=== PATIENT | female | born 1950 | race Caucasian/White ===

== ENCOUNTER 2023-01-03 04:08 | Inpatient (IN) | payer BC ==
[2023-01-03] MEDS ORDERED: ALBUTEROL SO4 2.5/IPRATROPIUM 0.5 INH SOL 3 ML VIAL.NEB. NEB ONE ×2 (05:14→05:31)
[2023-01-03] MEDS ORDERED: ACETAMINOPHEN 1000 MG/100 ML BAG IVPB ONE (05:16)
[2023-01-03] MEDS ORDERED: DEXAMETHASONE SOD PHOSPHATE 10 MG/1 ML VIAL IVPUSH ONE (05:33)
[2023-01-03] MEDS ORDERED: DEXAMETHASONE SOD PHOSPHATE 10 MG/1 ML VIAL ONE (05:57)
[2023-01-03] MEDS ORDERED: ACETAMINOPHEN INJECTION 100 ML IVPB ONE (05:57)
[2023-01-03 06:15] LABS: BASO % 0.4 % (0-2.0); EOS % 0.5 % (0-4.5); HEMATOCRIT 30.8 % (32.4-45.2); LYMPH % 22.9 % (8-40); MCH 29.7 pg (25.7-33.7); MCHC 32.4 g/dl (32.0-36.0); MEAN CELL VOLUME 91.6 fl (80-96); MEAN PLT VOLUME 8.1 fl (7.5-11.1); MONO % 10.8 % (3.8-10.2); NEUT % 65.4 % (42.8-82.8); PLATELET COUNT 178 10^3/uL (134-434); RBC 3.37 M/mm3 (3.60-5.2); RDW 15.6 % (11.6-15.6)
[2023-01-03 06:17] LABS: VENOUS BASE EXCESS -1.8 mmol/L (-2-2); VENOUS O2 SATURATION 49.6 % (70-80); VENOUS PCO2 49.9 mmHg (38-52); VENOUS PH 7.312 (7.310-7.410)
[2023-01-03 06:26] LABS: INR 1.1 (0.83-1.09); PROTHROMBIN TIME (PATIENT) 12.8 SEC (9.7-13.0)
[2023-01-03 06:29] LABS: ACTIVATED PTT 20.7 SECONDS (25.2-36.5)
[2023-01-03 06:33] LABS: POTASSIUM 4.3 mmol/L (3.5-5.1)
[2023-01-03 06:35] LABS: CALCIUM 8.2 mg/dL (8.5-10.1)
[2023-01-03 06:36] LABS: ALBUMIN 2.8 g/dl (3.4-5.0); BLOOD UREA NITROGEN 25.5 mg/dL (7-18); MAGNESIUM 1.1 mg/dL (1.8-2.4)
[2023-01-03 06:39] LABS: CREATININE 2.3 mg/dL (0.55-1.3); PHOSPHOROUS 4.7 mg/dL (2.5-4.9)
[2023-01-03 06:40] LABS: BILIRUBIN,TOTAL 0.5 mg/dL (0.2-1); TOT PROT 7.4 g/dl (6.4-8.2)
[2023-01-03] MEDS ORDERED: MAGNESIUM SULF 50% (8.12 MEQ/2 ML-1 GM VIAL) IVPB ONE (06:48)
[2023-01-03] MEDS ORDERED: SODIUM CHLORIDE 500 ML IV STA (06:50)
[2023-01-03] MEDS ORDERED: MAGNESIUM SULFATE IN WATER 2 GM/50 ML IVPB IVPB ONE (06:50)
[2023-01-03] MEDS ORDERED: ALBUTEROL SO4 0.083% IH SOL 2.5 MG/3 ML VIAL.NEB. NEB ONE ×2 (08:31→08:33)
[2023-01-03] MEDS: CALCITRIOL 0.25 MCG CAPSULE (FP) PO SCH (11:13)
[2023-01-03] MEDS: PANTOPRAZOLE 40 MG TABLET PO SCH (11:13)
[2023-01-03] MEDS: ESCITALOPRAM OXALATE 10 MG TABLET PO SCH (11:13)
[2023-01-03] MEDS: INSULIN (NOVOLOG) ASPART 100 UNITS/ML 10ML VIAL SQ SCH ×3 (11:35→21:55)
[2023-01-03 12:17] LABS: HEMATOCRIT 28.7 % (32.4-45.2); HEMOGLOBIN 9.1 GM/dL (10.7-15.3); LYMPH % 6.2 % (8-40); MCH 29.4 pg (25.7-33.7); MCHC 31.8 g/dl (32.0-36.0); MEAN CELL VOLUME 92.2 fl (80-96); MEAN PLT VOLUME 8.4 fl (7.5-11.1); MONO % 2.2 % (3.8-10.2); NEUT % 91.6 % (42.8-82.8); PLATELET COUNT 203 10^3/uL (134-434); RBC 3.11 M/mm3 (3.60-5.2); RDW 15.5 % (11.6-15.6); WHITE BLOOD COUNT 4.9 K/mm3 (4.0-10.0)
[2023-01-03 12:21] LABS: EPI CELLS >36 /uL (0-25.1); HYALINE CASTS 3 /uL (0-3.1); URINE APPEARANCE CLOUDY; URINE BACTERIA 62 /uL (0-1359); URINE BILIRUBIN NEGATIVE (NEGATIVE); URINE COLOR YELLOW; URINE GLUCOSE (UA) NEGATIVE (NEGATIVE); URINE KETONE NEGATIVE (NEGATIVE); URINE LEUK ESTERASE 1+ (NEGATIVE); URINE NITRITE NEGATIVE (NEGATIVE); URINE PROTEIN 1+ (NEGATIVE); URINE RBC 29 /uL (0-23.9); URINE UROBILINOGEN 0.2 mg/dL (0.2-1.0); URINE WBC 207 /uL (0-25.8)
[2023-01-03 12:40] LABS: ANISOCYTOSIS 2+; MACROCYTOSIS 0
[2023-01-03] MEDS ORDERED: ALBUTEROL SO4 0.083% IH SOL 2.5 MG/3 ML VIAL.NEB. NEB PRN (12:48)
[2023-01-03 13:24] VITALS: BMI 34.4
[2023-01-03] MEDS: methylPREDNISolone NA SUCC 40 MG/1 ML VIAL IVPUSH SCH ×2 (13:47→17:36)
[2023-01-03] MEDS: HEPARIN NA (PORCINE) 5,000 UNITS/ML 1ML VIAL SQ SCH ×2 (13:47→21:50)
[2023-01-03] MEDS ORDERED: IRON SUCROSE INJECTION 200 MG in SODIUM CHLORIDE 90 ML IVPB ONE (14:30)
[2023-01-03] MEDS: ASPIRIN 81 MG CHEWABLE TABLETS PO SCH (17:36)
[2023-01-03] MEDS: ALBUTEROL SO4 2.5/IPRATROPIUM 0.5 INH SOL 3 ML VIAL.NEB. NEB SCH (21:35)
[2023-01-03] MEDS: MONTELUKAST NA 10 MG TABLET PO SCH (21:50)
[2023-01-03] MEDS: ATORVASTATIN CA 20 MG TABLET (FP) PO SCH (21:50)
[2023-01-04] MEDS: methylPREDNISolone NA SUCC 40 MG/1 ML VIAL IVPUSH SCH ×3 (02:30→17:35)
[2023-01-04] MEDS: INSULIN (NOVOLOG) ASPART 100 UNITS/ML 10ML VIAL SQ SCH ×4 (06:17→22:03)
[2023-01-04] MEDS: HEPARIN NA (PORCINE) 5,000 UNITS/ML 1ML VIAL SQ SCH ×3 (06:17→22:03)
[2023-01-04] MEDS: LEVOTHYROXINE NA 50 MCG TABLET (FP) PO SCH (06:18)
[2023-01-04] MEDS: ALBUTEROL SO4 2.5/IPRATROPIUM 0.5 INH SOL 3 ML VIAL.NEB. NEB SCH ×4 (08:07→20:36)
[2023-01-04 08:15] LABS: BASO % 0.1 % (0-2.0); HEMATOCRIT 26.4 % (32.4-45.2); HEMOGLOBIN 8.7 GM/dL (10.7-15.3); LYMPH % 8.3 % (8-40); MCH 29.8 pg (25.7-33.7); MCHC 32.8 g/dl (32.0-36.0); MEAN CELL VOLUME 90.9 fl (80-96); MEAN PLT VOLUME 8.2 fl (7.5-11.1); NEUT % 88.6 % (42.8-82.8); PLATELET COUNT 198 10^3/uL (134-434); RDW 15.3 % (11.6-15.6); WHITE BLOOD COUNT 8.1 K/mm3 (4.0-10.0)
[2023-01-04 08:29] LABS: POTASSIUM 4.5 mmol/L (3.5-5.1)
[2023-01-04 08:35] LABS: CALCIUM 8.7 mg/dL (8.5-10.1)
[2023-01-04 08:36] LABS: ALBUMIN 2.5 g/dl (3.4-5.0); BLOOD UREA NITROGEN 31.1 mg/dL (7-18); MAGNESIUM 1.7 mg/dL (1.8-2.4)
[2023-01-04 08:39] LABS: CREATININE 2.3 mg/dL (0.55-1.3); TOT PROT 6.7 g/dl (6.4-8.2)
[2023-01-04 08:40] LABS: BILIRUBIN,TOTAL 0.3 mg/dL (0.2-1)
[2023-01-04] MEDS ORDERED: MAGNESIUM SULF 50% (8.12 MEQ/2 ML-1 GM VIAL) IVPB ONE (08:50)
[2023-01-04] MEDS ORDERED: REGADENOSON 0.4 MG/5 ML PRE-FILLED SYRINGE IVPUSH ONE ×2 (13:15→13:32)
[2023-01-04] MEDS ORDERED: VANCOMYCIN/WATER FOR INJ (PEG) 1,000 MG/200 ML BAG IVPB ONE (14:44)
[2023-01-04] MEDS ORDERED: AZTREONAM 1 GM in DEXTROSE 5%-WATER - 50 ML IVPB SCH (14:45)
[2023-01-04] MEDS: ESCITALOPRAM OXALATE 10 MG TABLET PO SCH (15:50)
[2023-01-04] MEDS: SUCRALFATE 1 GM TABLET (FP) PO SCH ×3 (15:51→22:03)
[2023-01-04] MEDS: PANTOPRAZOLE 40 MG TABLET PO SCH (15:51)
[2023-01-04] MEDS: AZTREONAM 1 GM in DEXTROSE 5%-WATER - 50 ML IVPB SCH ×2 (15:51→22:02)
[2023-01-04] MEDS: CALCITRIOL 0.25 MCG CAPSULE (FP) PO SCH (15:51)
[2023-01-04] MEDS: ASPIRIN 81 MG CHEWABLE TABLETS PO SCH (15:51)
[2023-01-04 19:06] LABS: EPI CELLS 6 /uL (0-25.1); HYALINE CASTS 2 /uL (0-3.1); PH,URINE 5.5 (5.0-8.0); URINE APPEARANCE CLEAR; URINE BACTERIA 251 /uL (0-1359); URINE BILIRUBIN NEGATIVE (NEGATIVE); URINE COLOR YELLOW; URINE GLUCOSE (UA) 1+ (NEGATIVE); URINE KETONE NEGATIVE (NEGATIVE); URINE LEUK ESTERASE 2+ (NEGATIVE); URINE NITRITE NEGATIVE (NEGATIVE); URINE PROTEIN 1+ (NEGATIVE); URINE UROBILINOGEN 0.2 mg/dL (0.2-1.0); URINE WBC 763 /uL (0-25.8)
[2023-01-04 20:44] LABS: URINE RBC 27.6 /uL (0-23.9)
[2023-01-04] MEDS ORDERED: INSULIN (NOVOLOG) ASPART 100 UNITS/ML 10ML VIAL ONE (21:30)
[2023-01-04] MEDS: ATORVASTATIN CA 20 MG TABLET (FP) PO SCH (22:03)
[2023-01-04] MEDS: MONTELUKAST NA 10 MG TABLET PO SCH (22:03)
[2023-01-04] MEDS: ARTIFICIAL TEARS (POLYVINYL ALCOHOL) OPTH DROPS OU PRN (22:04)
[2023-01-05] MEDS: methylPREDNISolone NA SUCC 40 MG/1 ML VIAL IVPUSH SCH ×3 (03:20→17:29)
[2023-01-05] MEDS: INSULIN (NOVOLOG) ASPART 100 UNITS/ML 10ML VIAL SQ SCH ×4 (06:03→21:12)
[2023-01-05] MEDS: LEVOTHYROXINE NA 50 MCG TABLET (FP) PO SCH (06:04)
[2023-01-05] MEDS: HEPARIN NA (PORCINE) 5,000 UNITS/ML 1ML VIAL SQ SCH ×3 (06:04→21:12)
[2023-01-05 07:35] LABS: POTASSIUM 4.2 mmol/L (3.5-5.1)
[2023-01-05 07:38] LABS: CALCIUM 8.8 mg/dL (8.5-10.1)
[2023-01-05 07:39] LABS: ALBUMIN 2.4 g/dl (3.4-5.0); BLOOD UREA NITROGEN 39.9 mg/dL (7-18)
[2023-01-05] MEDS: ALBUTEROL SO4 2.5/IPRATROPIUM 0.5 INH SOL 3 ML VIAL.NEB. NEB SCH ×5 (07:40→20:09)
[2023-01-05 07:42] LABS: CREATININE 2.1 mg/dL (0.55-1.3)
[2023-01-05 07:43] LABS: TOT PROT 6.2 g/dl (6.4-8.2)
[2023-01-05 07:44] LABS: BILIRUBIN,TOTAL 0.2 mg/dL (0.2-1)
[2023-01-05] MEDS ORDERED: REGADENOSON 0.4 MG/5 ML PRE-FILLED SYRINGE IVPUSH ONE (10:15)
[2023-01-05] MEDS: AZTREONAM 1 GM in DEXTROSE 5%-WATER - 50 ML IVPB SCH ×2 (12:58→21:10)
[2023-01-05] MEDS: ESCITALOPRAM OXALATE 10 MG TABLET PO SCH (12:58)
[2023-01-05] MEDS: SUCRALFATE 1 GM TABLET (FP) PO SCH ×4 (12:59→21:12)
[2023-01-05] MEDS: ASPIRIN 81 MG CHEWABLE TABLETS PO SCH (12:59)
[2023-01-05] MEDS: PANTOPRAZOLE 40 MG TABLET PO SCH (12:59)
[2023-01-05] MEDS: CALCITRIOL 0.25 MCG CAPSULE (FP) PO SCH (12:59)
[2023-01-05] MEDS ORDERED: INSULIN (NOVOLOG) ASPART 100 UNITS/ML 10ML VIAL ONE ×2 (16:52→21:14)
[2023-01-05] MEDS: ARTIFICIAL TEARS (POLYVINYL ALCOHOL) OPTH DROPS OU PRN (17:29)
[2023-01-05] MEDS: ATORVASTATIN CA 20 MG TABLET (FP) PO SCH (21:11)
[2023-01-05] MEDS: MONTELUKAST NA 10 MG TABLET PO SCH (21:12)
[2023-01-06] MEDS: BENZOCAINE/MENTH/CETYLPYRD CL 1 EACH LOZENGE MM PRN ×4 (01:58→22:02)
[2023-01-06] MEDS: methylPREDNISolone NA SUCC 40 MG/1 ML VIAL IVPUSH SCH ×3 (03:30→18:12)
[2023-01-06] MEDS: HEPARIN NA (PORCINE) 5,000 UNITS/ML 1ML VIAL SQ SCH ×3 (05:51→22:01)
[2023-01-06] MEDS: LEVOTHYROXINE NA 50 MCG TABLET (FP) PO SCH ×2 (05:51→06:00)
[2023-01-06] MEDS: INSULIN (NOVOLOG) ASPART 100 UNITS/ML 10ML VIAL SQ SCH ×4 (06:00→22:01)
[2023-01-06] MEDS: ALBUTEROL SO4 2.5/IPRATROPIUM 0.5 INH SOL 3 ML VIAL.NEB. NEB SCH ×4 (08:00→19:28)
[2023-01-06 08:42] LABS: HEMATOCRIT 27.2 % (32.4-45.2); HEMOGLOBIN 8.8 GM/dL (10.7-15.3); MCH 28.7 pg (25.7-33.7); MCHC 32.3 g/dl (32.0-36.0); MEAN PLT VOLUME 7.5 fl (7.5-11.1); PLATELET COUNT 255 10^3/uL (134-434); RBC 3.05 M/mm3 (3.60-5.2); RDW 15.6 % (11.6-15.6); WHITE BLOOD COUNT 11.5 K/mm3 (4.0-10.0)
[2023-01-06 09:02] LABS: POTASSIUM 4.2 mmol/L (3.5-5.1)
[2023-01-06 09:07] LABS: BLOOD UREA NITROGEN 44.2 mg/dL (7-18)
[2023-01-06 09:08] LABS: ALBUMIN 2.6 g/dl (3.4-5.0)
[2023-01-06 09:12] LABS: BILIRUBIN,TOTAL 0.5 mg/dL (0.2-1); TOT PROT 6.6 g/dl (6.4-8.2)
[2023-01-06 09:58] LABS: ANISOCYTOSIS 1+; MACROCYTOSIS 0
[2023-01-06] MEDS: ASPIRIN 81 MG CHEWABLE TABLETS PO SCH (10:03)
[2023-01-06] MEDS: ESCITALOPRAM OXALATE 10 MG TABLET PO SCH (10:03)
[2023-01-06] MEDS: AZTREONAM 1 GM in DEXTROSE 5%-WATER - 50 ML IVPB SCH ×2 (10:03→22:00)
[2023-01-06] MEDS: PANTOPRAZOLE 40 MG TABLET PO SCH (10:03)
[2023-01-06] MEDS: SUCRALFATE 1 GM TABLET (FP) PO SCH ×4 (10:03→22:01)
[2023-01-06] MEDS: CALCITRIOL 0.25 MCG CAPSULE (FP) PO SCH (10:03)
[2023-01-06] MEDS ORDERED: INSULIN (NOVOLOG) ASPART 100 UNITS/ML 10ML VIAL ONE (11:55)
[2023-01-06] MEDS ORDERED: VANCOMYCIN/WATER FOR INJ (PEG) 1,000 MG/200 ML BAG IVPB ONE (12:00)
[2023-01-06] MEDS: MONTELUKAST NA 10 MG TABLET PO SCH (22:01)
[2023-01-06] MEDS: ATORVASTATIN CA 20 MG TABLET (FP) PO SCH (22:01)
[2023-01-07] MEDS: methylPREDNISolone NA SUCC 40 MG/1 ML VIAL IVPUSH SCH ×3 (03:24→14:34)
[2023-01-07] MEDS: HEPARIN NA (PORCINE) 5,000 UNITS/ML 1ML VIAL SQ SCH ×3 (06:36→21:44)
[2023-01-07] MEDS: LEVOTHYROXINE NA 50 MCG TABLET (FP) PO SCH (06:37)
[2023-01-07] MEDS: INSULIN (NOVOLOG) ASPART 100 UNITS/ML 10ML VIAL SQ SCH ×4 (06:37→21:52)
[2023-01-07] MEDS: ALBUTEROL SO4 2.5/IPRATROPIUM 0.5 INH SOL 3 ML VIAL.NEB. NEB SCH ×4 (08:30→20:41)
[2023-01-07] MEDS ORDERED: ACETAMINOPHEN 325 MG TABLET (FP) PO PRN (09:08)
[2023-01-07] MEDS: ASPIRIN 81 MG CHEWABLE TABLETS PO SCH (09:19)
[2023-01-07] MEDS: PANTOPRAZOLE 40 MG TABLET PO SCH (09:19)
[2023-01-07] MEDS: ESCITALOPRAM OXALATE 10 MG TABLET PO SCH (09:19)
[2023-01-07] MEDS: AZTREONAM 1 GM in DEXTROSE 5%-WATER - 50 ML IVPB SCH ×2 (09:19→21:42)
[2023-01-07] MEDS: SUCRALFATE 1 GM TABLET (FP) PO SCH ×4 (09:19→21:44)
[2023-01-07] MEDS: CALCITRIOL 0.25 MCG CAPSULE (FP) PO SCH (09:19)
[2023-01-07] MEDS ORDERED: INSULIN (NOVOLOG) ASPART 100 UNITS/ML 10ML VIAL ONE ×2 (10:59→16:51)
[2023-01-07 13:09] LABS: TOTAL PROTEIN, URINE 25.2 mg/dL (Not Estab.)
[2023-01-07] MEDS ORDERED: VANCOMYCIN/WATER FOR INJ (PEG) 1,000 MG/200 ML BAG IVPB SCH (17:00)
[2023-01-07] MEDS: MONTELUKAST NA 10 MG TABLET PO SCH (21:44)
[2023-01-07] MEDS: ATORVASTATIN CA 20 MG TABLET (FP) PO SCH (21:44)
[2023-01-08] MEDS: methylPREDNISolone NA SUCC 40 MG/1 ML VIAL IVPUSH SCH ×2 (02:40→12:43)
[2023-01-08] MEDS: HEPARIN NA (PORCINE) 5,000 UNITS/ML 1ML VIAL SQ SCH ×3 (06:33→21:41)
[2023-01-08] MEDS: LEVOTHYROXINE NA 50 MCG TABLET (FP) PO SCH (06:33)
[2023-01-08] MEDS: INSULIN (NOVOLOG) ASPART 100 UNITS/ML 10ML VIAL SQ SCH ×4 (06:33→22:00)
[2023-01-08] MEDS: ALBUTEROL SO4 2.5/IPRATROPIUM 0.5 INH SOL 3 ML VIAL.NEB. NEB SCH (07:40)
[2023-01-08] MEDS: AZTREONAM 1 GM in DEXTROSE 5%-WATER - 50 ML IVPB SCH ×2 (10:33→21:40)
[2023-01-08] MEDS: PANTOPRAZOLE 40 MG TABLET PO SCH (10:33)
[2023-01-08] MEDS: CALCITRIOL 0.25 MCG CAPSULE (FP) PO SCH (10:33)
[2023-01-08] MEDS: ASPIRIN 81 MG CHEWABLE TABLETS PO SCH (10:33)
[2023-01-08] MEDS: ESCITALOPRAM OXALATE 10 MG TABLET PO SCH (10:33)
[2023-01-08] MEDS: SUCRALFATE 1 GM TABLET (FP) PO SCH ×4 (10:33→21:41)
[2023-01-08] MEDS ORDERED: BENZOCAINE/MENTH/CETYLPYRD CL 1 EACH LOZENGE MM PRN (14:03)
[2023-01-08] MEDS ORDERED: ARTIFICIAL TEARS (POLYVINYL ALCOHOL) OPTH DROPS OU PRN (14:03)
[2023-01-08] MEDS: VANCOMYCIN/WATER FOR INJ (PEG) 1,000 MG/200 ML BAG IVPB SCH (16:51)
[2023-01-08] MEDS ORDERED: AZTREONAM 1 GM VIAL (RESTRICTED TO ID) ONE (21:33)
[2023-01-08] MEDS: MONTELUKAST NA 10 MG TABLET PO SCH (21:41)
[2023-01-08] MEDS: ATORVASTATIN CA 20 MG TABLET (FP) PO SCH (21:41)
[2023-01-08] MEDS: INSULIN (LEVEMIR) 100 UNITS/ML UNITS SQ SCH (21:44)
[2023-01-08] MEDS: ARTIFICIAL TEARS (POLYVINYL ALCOHOL) OPTH DROPS OU PRN (21:48)
[2023-01-08] MEDS ORDERED: INSULIN (NOVOLOG) ASPART 100 UNITS/ML 10ML VIAL ONE (21:56)
[2023-01-08] MEDS ORDERED: INSULIN (LEVEMIR) 100 UNITS/ML UNITS SQ SCH (22:00)
[2023-01-09] MEDS: methylPREDNISolone NA SUCC 40 MG/1 ML VIAL IVPUSH SCH ×2 (01:26→16:00)
[2023-01-09] MEDS ORDERED: INSULIN (NOVOLOG) ASPART 100 UNITS/ML 10ML VIAL ONE ×3 (06:02→21:16)
[2023-01-09] MEDS: HEPARIN NA (PORCINE) 5,000 UNITS/ML 1ML VIAL SQ SCH ×3 (06:04→21:25)
[2023-01-09] MEDS: INSULIN (NOVOLOG) ASPART 100 UNITS/ML 10ML VIAL SQ SCH ×4 (06:04→21:26)
[2023-01-09] MEDS: LEVOTHYROXINE NA 50 MCG TABLET (FP) PO SCH (06:05)
[2023-01-09] MEDS: SUCRALFATE 1 GM TABLET (FP) PO SCH ×4 (06:05→21:27)
[2023-01-09] MEDS ORDERED: ASPIRIN 81 MG CHEWABLE TABLETS PO SCH (10:00)
[2023-01-09 10:16] LABS: HEMATOCRIT 25.6 % (32.4-45.2); HEMOGLOBIN 8.3 GM/dL (10.7-15.3); MCH 28.8 pg (25.7-33.7); MCHC 32.4 g/dl (32.0-36.0); MEAN CELL VOLUME 88.9 fl (80-96); MEAN PLT VOLUME 7.3 fl (7.5-11.1); PLATELET COUNT 304 10^3/uL (134-434); RBC 2.88 M/mm3 (3.60-5.2); RDW 15.6 % (11.6-15.6)
[2023-01-09 10:26] LABS: ALBUMIN 2.5 g/dl (3.4-5.0); BILIRUBIN,TOTAL 0.4 mg/dL (0.2-1); BLOOD UREA NITROGEN 55.9 mg/dL (7-18); CALCIUM 8.4 mg/dL (8.5-10.1); CREATININE 1.7 mg/dL (0.55-1.3); POTASSIUM 4.4 mmol/L (3.5-5.1); TOT PROT 5.9 g/dl (6.4-8.2)
[2023-01-09] MEDS: AZTREONAM 1 GM in DEXTROSE 5%-WATER - 50 ML IVPB SCH ×2 (10:35→21:24)
[2023-01-09] MEDS: CALCITRIOL 0.25 MCG CAPSULE (FP) PO SCH (10:36)
[2023-01-09] MEDS: ESCITALOPRAM OXALATE 10 MG TABLET PO SCH (10:36)
[2023-01-09] MEDS: PANTOPRAZOLE 40 MG TABLET PO SCH (10:36)
[2023-01-09 11:11] LABS: ANISOCYTOSIS 0; HELMET CELLS 0; HOWELL-JOLLY BODIES 0; MACROCYTOSIS 0; OVALOCYTE 0; ROULEAU 0; SICKELED CELLS 0; TARGET CELLS 0; TEAR DROP CELLS 0; TOXIC GRANULATION 0
[2023-01-09] MEDS: VANCOMYCIN/WATER FOR INJ (PEG) 1,000 MG/200 ML BAG IVPB SCH (16:53)
[2023-01-09] MEDS: ATORVASTATIN CA 20 MG TABLET (FP) PO SCH (21:24)
[2023-01-09] MEDS: MONTELUKAST NA 10 MG TABLET PO SCH (21:25)
[2023-01-09] MEDS: INSULIN (LEVEMIR) 100 UNITS/ML UNITS SQ SCH (21:25)
[2023-01-10] MEDS: methylPREDNISolone NA SUCC 40 MG/1 ML VIAL IVPUSH SCH ×2 (01:06→15:32)
[2023-01-10] MEDS: ACETAMINOPHEN 325 MG TABLET (FP) PO PRN (03:54)
[2023-01-10] MEDS: HEPARIN NA (PORCINE) 5,000 UNITS/ML 1ML VIAL SQ SCH ×3 (06:04→21:45)
[2023-01-10] MEDS: SUCRALFATE 1 GM TABLET (FP) PO SCH ×4 (06:05→21:46)
[2023-01-10] MEDS: LEVOTHYROXINE NA 50 MCG TABLET (FP) PO SCH (06:05)
[2023-01-10] MEDS: INSULIN (NOVOLOG) ASPART 100 UNITS/ML 10ML VIAL SQ SCH ×4 (06:14→21:47)
[2023-01-10 09:29] LABS: HEMATOCRIT 28.3 % (32.4-45.2); HEMOGLOBIN 8.9 GM/dL (10.7-15.3); MCH 27.9 pg (25.7-33.7); MCHC 31.4 g/dl (32.0-36.0); MEAN CELL VOLUME 88.8 fl (80-96); MEAN PLT VOLUME 7.4 fl (7.5-11.1); PLATELET COUNT 322 10^3/uL (134-434); RBC 3.19 M/mm3 (3.60-5.2); RDW 15.7 % (11.6-15.6); WHITE BLOOD COUNT 17.6 K/mm3 (4.0-10.0)
[2023-01-10 09:53] LABS: CHLORIDE 107 mmol/L (98-107); POTASSIUM 4.3 mmol/L (3.5-5.1); SODIUM 141 mmol/L (136-145)
[2023-01-10 10:00] LABS: CALCIUM 8.5 mg/dL (8.5-10.1)
[2023-01-10 10:01] LABS: ALBUMIN 2.4 g/dl (3.4-5.0); AMYLASE 113 U/L (25-115); ANION GAP 10 MMOL/L (8-16); BLOOD UREA NITROGEN 53.4 mg/dL (7-18); CO2 25 mmol/L (21-32); GLUCOSE,RANDOM 176 mg/dL (74-106); LIPASE 472 U/L (73-393)
[2023-01-10 10:03] LABS: CREATININE 1.5 mg/dL (0.55-1.3); SGOT/AST 21 U/L (15-37); SGPT/ALT 37 U/L (13-61)
[2023-01-10 10:05] LABS: BILIRUBIN,TOTAL 0.9 mg/dL (0.2-1); TOT PROT 5.6 g/dl (6.4-8.2)
[2023-01-10 10:06] LABS: ALK PHOS 39 U/L (45-117)
[2023-01-10] MEDS: PANTOPRAZOLE 40 MG TABLET PO SCH (10:06)
[2023-01-10] MEDS: ESCITALOPRAM OXALATE 10 MG TABLET PO SCH (10:06)
[2023-01-10] MEDS: CALCITRIOL 0.25 MCG CAPSULE (FP) PO SCH (10:06)
[2023-01-10 11:07] LABS: ANISOCYTOSIS 0; HELMET CELLS 0; HOWELL-JOLLY BODIES 0; MACROCYTOSIS 0; OVALOCYTE 0; ROULEAU 0; SICKELED CELLS 0; TARGET CELLS 0; TEAR DROP CELLS 0; TOXIC GRANULATION 0
[2023-01-10] MEDS: AZTREONAM 1 GM in DEXTROSE 5%-WATER - 50 ML IVPB SCH ×2 (12:07→21:44)
[2023-01-10] MEDS ORDERED: INSULIN (NOVOLOG) ASPART 100 UNITS/ML 10ML VIAL ONE (12:16)
[2023-01-10] MEDS: VANCOMYCIN/WATER FOR INJ (PEG) 1,000 MG/200 ML BAG IVPB SCH (17:17)
[2023-01-10] MEDS: MONTELUKAST NA 10 MG TABLET PO SCH (21:44)
[2023-01-10] MEDS: ATORVASTATIN CA 20 MG TABLET (FP) PO SCH (21:45)
[2023-01-10] MEDS: INSULIN (LEVEMIR) 100 UNITS/ML UNITS SQ SCH (21:46)
[2023-01-11] MEDS: methylPREDNISolone NA SUCC 40 MG/1 ML VIAL IVPUSH SCH ×2 (01:32→13:59)
[2023-01-11] MEDS: LEVOTHYROXINE NA 50 MCG TABLET (FP) PO SCH (06:05)
[2023-01-11] MEDS: SUCRALFATE 1 GM TABLET (FP) PO SCH ×4 (06:05→21:47)
[2023-01-11] MEDS: HEPARIN NA (PORCINE) 5,000 UNITS/ML 1ML VIAL SQ SCH ×3 (06:05→21:47)
[2023-01-11] MEDS: INSULIN (NOVOLOG) ASPART 100 UNITS/ML 10ML VIAL SQ SCH ×4 (06:05→21:48)
[2023-01-11 09:12] LABS: HEMATOCRIT 28.1 % (32.4-45.2); HEMOGLOBIN 8.9 GM/dL (10.7-15.3); MCH 28.9 pg (25.7-33.7); MCHC 31.5 g/dl (32.0-36.0); MEAN CELL VOLUME 91.7 fl (80-96); MEAN PLT VOLUME 7.7 fl (7.5-11.1); PLATELET COUNT 325 10^3/uL (134-434); RBC 3.07 M/mm3 (3.60-5.2); RDW 16.1 % (11.6-15.6); WHITE BLOOD COUNT 15.7 K/mm3 (4.0-10.0)
[2023-01-11 09:43] LABS: POTASSIUM 4.6 mmol/L (3.5-5.1)
[2023-01-11 09:45] LABS: CALCIUM 8.2 mg/dL (8.5-10.1)
[2023-01-11 09:46] LABS: ALBUMIN 2.2 g/dl (3.4-5.0); BLOOD UREA NITROGEN 52.2 mg/dL (7-18)
[2023-01-11 09:49] LABS: CREATININE 1.4 mg/dL (0.55-1.3)
[2023-01-11 09:50] LABS: BILIRUBIN,TOTAL 0.3 mg/dL (0.2-1); TOT PROT 5.4 g/dl (6.4-8.2)
[2023-01-11 09:54] LABS: ANISOCYTOSIS 1+; MACROCYTOSIS 0
[2023-01-11] MEDS: PANTOPRAZOLE 40 MG TABLET PO SCH (10:43)
[2023-01-11] MEDS: AZTREONAM 1 GM in DEXTROSE 5%-WATER - 50 ML IVPB SCH ×2 (10:43→21:47)
[2023-01-11] MEDS: ESCITALOPRAM OXALATE 10 MG TABLET PO SCH (10:43)
[2023-01-11] MEDS: CALCITRIOL 0.25 MCG CAPSULE (FP) PO SCH (10:44)
[2023-01-11] MEDS: VANCOMYCIN/WATER FOR INJ (PEG) 1,000 MG/200 ML BAG IVPB SCH (17:37)
[2023-01-11] MEDS: ATORVASTATIN CA 20 MG TABLET (FP) PO SCH (21:46)
[2023-01-11] MEDS: MONTELUKAST NA 10 MG TABLET PO SCH (21:47)
[2023-01-11] MEDS: INSULIN (LEVEMIR) 100 UNITS/ML UNITS SQ SCH (21:47)
[2023-01-12] MEDS: methylPREDNISolone NA SUCC 40 MG/1 ML VIAL IVPUSH SCH ×2 (01:01→13:17)
[2023-01-12] MEDS: HEPARIN NA (PORCINE) 5,000 UNITS/ML 1ML VIAL SQ SCH ×3 (06:12→23:33)
[2023-01-12] MEDS: LEVOTHYROXINE NA 50 MCG TABLET (FP) PO SCH (06:12)
[2023-01-12] MEDS: INSULIN (NOVOLOG) ASPART 100 UNITS/ML 10ML VIAL SQ SCH ×4 (06:13→23:36)
[2023-01-12] MEDS: SUCRALFATE 1 GM TABLET (FP) PO SCH ×4 (06:37→23:33)
[2023-01-12] MEDS: PANTOPRAZOLE 40 MG TABLET PO SCH (09:18)
[2023-01-12] MEDS: AZTREONAM 1 GM in DEXTROSE 5%-WATER - 50 ML IVPB SCH (09:18)
[2023-01-12] MEDS: ESCITALOPRAM OXALATE 10 MG TABLET PO SCH (09:18)
[2023-01-12] MEDS: CALCITRIOL 0.25 MCG CAPSULE (FP) PO SCH (09:18)
[2023-01-12] MEDS ORDERED: INSULIN (NOVOLOG) ASPART 100 UNITS/ML 10ML VIAL ONE (17:09)
[2023-01-12] MEDS: ATORVASTATIN CA 20 MG TABLET (FP) PO SCH (23:33)
[2023-01-12] MEDS: MONTELUKAST NA 10 MG TABLET PO SCH (23:34)
[2023-01-12] MEDS: INSULIN (LEVEMIR) 100 UNITS/ML UNITS SQ SCH (23:34)
[2023-01-13] MEDS: INSULIN (NOVOLOG) ASPART 100 UNITS/ML 10ML VIAL SQ SCH ×4 (07:25→21:29)
[2023-01-13] MEDS: HEPARIN NA (PORCINE) 5,000 UNITS/ML 1ML VIAL SQ SCH ×3 (07:26→21:22)
[2023-01-13] MEDS: LEVOTHYROXINE NA 50 MCG TABLET (FP) PO SCH (07:26)
[2023-01-13] MEDS: SUCRALFATE 1 GM TABLET (FP) PO SCH ×4 (07:28→21:22)
[2023-01-13] MEDS: predniSONE 10 MG TABLET (UD) PO SCH (10:09)
[2023-01-13] MEDS: ESCITALOPRAM OXALATE 10 MG TABLET PO SCH (10:09)
[2023-01-13] MEDS: PANTOPRAZOLE 40 MG TABLET PO SCH (10:09)
[2023-01-13] MEDS: CALCITRIOL 0.25 MCG CAPSULE (FP) PO SCH (10:10)
[2023-01-13] MEDS ORDERED: INSULIN (NOVOLOG) ASPART 100 UNITS/ML 10ML VIAL ONE ×3 (11:37→21:08)
[2023-01-13 14:14] VITALS: RESP 18
[2023-01-13] MEDS: MONTELUKAST NA 10 MG TABLET PO SCH (21:22)
[2023-01-13] MEDS: ATORVASTATIN CA 20 MG TABLET (FP) PO SCH (21:22)
[2023-01-13] MEDS: INSULIN (LEVEMIR) 100 UNITS/ML UNITS SQ SCH (21:29)
[2023-01-14] MEDS: ACETAMINOPHEN 325 MG TABLET (FP) PO PRN (02:09)
[2023-01-14] MEDS ORDERED: INSULIN (LEVEMIR) 100 UNITS/ML UNITS SQ ONE (05:49)
[2023-01-14] MEDS: SUCRALFATE 1 GM TABLET (FP) PO SCH ×4 (06:12→21:22)
[2023-01-14] MEDS: HEPARIN NA (PORCINE) 5,000 UNITS/ML 1ML VIAL SQ SCH ×3 (06:12→21:22)
[2023-01-14] MEDS: LEVOTHYROXINE NA 50 MCG TABLET (FP) PO SCH (06:12)
[2023-01-14] MEDS: INSULIN (NOVOLOG) ASPART 100 UNITS/ML 10ML VIAL SQ SCH ×4 (06:16→21:25)
[2023-01-14] MEDS: ESCITALOPRAM OXALATE 10 MG TABLET PO SCH (09:26)
[2023-01-14] MEDS: PANTOPRAZOLE 40 MG TABLET PO SCH (09:26)
[2023-01-14] MEDS: predniSONE 10 MG TABLET (UD) PO SCH (09:26)
[2023-01-14] MEDS: CALCITRIOL 0.25 MCG CAPSULE (FP) PO SCH (09:27)
[2023-01-14] MEDS ORDERED: INSULIN (NOVOLOG) ASPART 100 UNITS/ML 10ML VIAL ONE (21:03)
[2023-01-14] MEDS: ATORVASTATIN CA 20 MG TABLET (FP) PO SCH (21:21)
[2023-01-14] MEDS: MONTELUKAST NA 10 MG TABLET PO SCH (21:22)
[2023-01-14] MEDS: INSULIN (LEVEMIR) 100 UNITS/ML UNITS SQ SCH (21:25)
[2023-01-15] MEDS: SUCRALFATE 1 GM TABLET (FP) PO SCH ×2 (06:09→11:09)
[2023-01-15] MEDS: LEVOTHYROXINE NA 50 MCG TABLET (FP) PO SCH (06:09)
[2023-01-15] MEDS: HEPARIN NA (PORCINE) 5,000 UNITS/ML 1ML VIAL SQ SCH ×2 (06:09→13:18)
[2023-01-15] MEDS: INSULIN (NOVOLOG) ASPART 100 UNITS/ML 10ML VIAL SQ SCH ×2 (06:11→11:06)
[2023-01-15] MEDS ORDERED: INSULIN (LEVEMIR) 100 UNITS/ML UNITS SQ ONE (06:28)
[2023-01-15] MEDS: PANTOPRAZOLE 40 MG TABLET PO SCH (09:34)
[2023-01-15] MEDS: CALCITRIOL 0.25 MCG CAPSULE (FP) PO SCH (09:34)
[2023-01-15] MEDS: ESCITALOPRAM OXALATE 10 MG TABLET PO SCH (09:34)
[2023-01-15] MEDS ORDERED: PREDNISONE PO SCH (10:00)
[2023-01-15] MEDS ORDERED: predniSONE 10 MG TABLET (UD) PO SCH (10:37)
[2023-01-15 12:13] LABS: POTASSIUM 4.3 mmol/L (3.5-5.1)
[2023-01-15 12:14] LABS: ALBUMIN 2.3 g/dl (3.4-5.0); BLOOD UREA NITROGEN 42.5 mg/dL (7-18); CALCIUM 8.8 mg/dL (8.5-10.1)
[2023-01-15 12:18] LABS: CREATININE 1.4 mg/dL (0.55-1.3)
[2023-01-15 12:19] LABS: BILIRUBIN,TOTAL 0.3 mg/dL (0.2-1); TOT PROT 5.2 g/dl (6.4-8.2)
[2023-01-15 14:10] VITALS: BP 129/71; PULSE 84; TEMP 98.2
== END 2023-01-15 16:23 | disposition home or self-care (01) | DRG 190 ==
LOC: JER 04:08 → JERBED 06:10 → J4W 09:43 → J6S 01-08 14:01
PROVIDERS: ADMIT Family Medicine; ATTEND Family Medicine
DX: J44.1 Chronic obstructive pulmonary disease with (acute) exacerbation (principal); J18.9 Pneumonia, unspecified organism; K86.2 Cyst of pancreas; N39.0 Urinary tract infection, site not specified; J44.0 Chronic obstructive pulmonary disease with (acute) lower respiratory infection; E78.5 Hyperlipidemia, unspecified; K21.9 Gastro-esophageal reflux disease without esophagitis; I12.9 Hypertensive chronic kidney disease with stage 1 through stage 4 chronic kidney disease, or unspecified chronic kidney disease; E11.22 Type 2 diabetes mellitus with diabetic chronic kidney disease; D49.0 Neoplasm of unspecified behavior of digestive system; N18.9 Chronic kidney disease, unspecified; D64.9 Anemia, unspecified; B95.2 Enterococcus as the cause of diseases classified elsewhere; Z85.038 Personal history of other malignant neoplasm of large intestine; Z88.0 Allergy status to penicillin
CPT/HCPCS: 0241U-QW; 36415; 71045-TC-FY; 71250-TC; 74181-TC; 76700-TC; 76856-TC; 78452-TC; 80053; 80061; 81003; 82043; 82150; 82272; 82378; 82570; 82728; 82803; 82962; 83036; 83540; 83550; 83605; 83690; 83735; 83880; 84100; 84132; 84156; 84157; 84443; 84484; 85025; 85610; 85730; 86140; 86301; 86304; 86850; 86900; 86901; 87040; 87070; 87086; 87186; 87205; 87635; 87899; 93005; 93010; 93017; 93306-TC; 94640; 94761; 97116-GP; 97162-GP; 99285-25; A9502; G0480; J1100; J1644; J1756; J2785

== ENCOUNTER 2023-02-03 13:05 | Inpatient (IN) | payer BC ==
[2023-02-03] MEDS ORDERED: LACTATED RINGERS SOLUTION 1000 ML INFUS.BAG IV ONE ×2 (13:17→18:04)
[2023-02-03] MEDS ORDERED: ONDANSETRON 4 MG/2 ML VIAL IVPUSH ONE (13:24)
[2023-02-03] MEDS ORDERED: ACETAMINOPHEN 1000 MG/100 ML BAG IVPB ONE ×2 (13:24→22:06)
[2023-02-03] MEDS ORDERED: ONDANSETRON 4 MG/2 ML VIAL ONE (13:48)
[2023-02-03] MEDS ORDERED: ACETAMINOPHEN INJECTION 100 ML IVPB ONE (13:48)
[2023-02-03 13:54] LABS: VENOUS BASE EXCESS -11.1 mmol/L (-2-2); VENOUS O2 SATURATION 84.2 % (70-80); VENOUS PCO2 33.7 mmHg (38-52); VENOUS PH 7.262 (7.310-7.410)
[2023-02-03 13:57] LABS: HEMATOCRIT 31.6 % (32.4-45.2); HEMOGLOBIN 10.1 GM/dL (10.7-15.3); MCH 29.6 pg (25.7-33.7); MCHC 32.1 g/dl (32.0-36.0); MEAN CELL VOLUME 92.3 fl (80-96); MEAN PLT VOLUME 7.7 fl (7.5-11.1); PLATELET COUNT 234 10^3/uL (134-434); RBC 3.42 M/mm3 (3.60-5.2); WHITE BLOOD COUNT 16.1 K/mm3 (4.0-10.0)
[2023-02-03 14:21] LABS: CHLORIDE 103 mmol/L (98-107); SODIUM 133 mmol/L (136-145)
[2023-02-03 14:25] LABS: ALBUMIN 2.7 g/dl (3.4-5.0); CO2 18 mmol/L (21-32); GLUCOSE,RANDOM 311 mg/dL (74-106); MAGNESIUM 2.1 mg/dL (1.8-2.4)
[2023-02-03 14:27] LABS: CREATININE 2.7 mg/dL (0.55-1.3); PHOSPHOROUS 6.3 mg/dL (2.5-4.9); SGOT/AST 120 U/L (15-37)
[2023-02-03 14:29] LABS: BILIRUBIN,TOTAL 0.6 mg/dL (0.2-1); TOT PROT 7.6 g/dl (6.4-8.2)
[2023-02-03 14:31] LABS: ALK PHOS 64 U/L (45-117)
[2023-02-03 14:32] LABS: ANISOCYTOSIS 0; MACROCYTOSIS 0
[2023-02-03 14:52] LABS: ANION GAP 12 MMOL/L (8-16); LACTIC ACID 6.1 mmol/L (0.4-2.0); POTASSIUM 8.2 mmol/L (3.5-5.1); SGPT/ALT 31 U/L (13-61)
[2023-02-03] MEDS ORDERED: VANCOMYCIN 1 GM in D5W (PRE-DOCKED) 1,000 MG/250 ML (RESTRICTED TO ID ONLY IVPB ONE (15:19)
[2023-02-03] MEDS ORDERED: CEFEPIME HCL/D5W 1 GM/50 ML BAG IVPB ONE (15:19)
[2023-02-03] MEDS ORDERED: FAMOTIDINE 20 MG TABLET PO ONE (15:26)
[2023-02-03] MEDS ORDERED: EPINEPHrine 1:1,000 0.3 MG/0.3 ML SYR IM ONE (15:28)
[2023-02-03] MEDS ORDERED: FAMOTIDINE 20 MG TABLET ONE (15:40)
[2023-02-03] MEDS ORDERED: EPINEPHrine/PF 1 MG/1 ML (1:1,000) AMPULE ONE ×2 (15:40→15:46)
[2023-02-03 15:42] LABS: INR 1.2 (0.83-1.09); PROTHROMBIN TIME (PATIENT) 13.9 SEC (9.7-13.0)
[2023-02-03] MEDS ORDERED: methylPREDNISolone NA SUCC 125 MG/2 ML VIAL IVPUSH ONE (15:45)
[2023-02-03] MEDS ORDERED: methylPREDNISolone NA SUCC 125 MG/2 ML VIAL ONE (15:46)
[2023-02-03 15:55] LABS: POTASSIUM 4.5 mmol/L (3.5-5.1)
[2023-02-03 15:56] LABS: CALCIUM 8.8 mg/dL (8.5-10.1)
[2023-02-03 15:57] LABS: ALBUMIN 2.8 g/dl (3.4-5.0); BLOOD UREA NITROGEN 29.5 mg/dL (7-18)
[2023-02-03 16:00] LABS: CREATININE 2.6 mg/dL (0.55-1.3)
[2023-02-03 16:01] LABS: BILIRUBIN,TOTAL 0.7 mg/dL (0.2-1); TOT PROT 6.5 g/dl (6.4-8.2)
[2023-02-03] MEDS ORDERED: CEFEPIME 1 GM/100 ML BAG IVPB ONE (16:57)
[2023-02-03] MEDS ORDERED: VANCOMYCIN/WATER FOR INJ (PEG) 1,000 MG/200 ML BAG IVPB ONE (17:57)
[2023-02-03] MEDS ORDERED: SODIUM CHLORIDE CVP ONE (18:43)
[2023-02-03] MEDS ORDERED: ALTEPLASE CVP ONE (18:43)
[2023-02-03] MEDS ORDERED: ALTEPLASE 100 MG/100 ML VIAL IVPB ONE (19:15)
[2023-02-03] MEDS ORDERED: ALTEPLASE 100MG 100 ML ONE (19:37)
[2023-02-03 19:44] LABS: URINE APPEARANCE TURBID; URINE COLOR YELLOW
[2023-02-03 19:45] LABS: URINE BILIRUBIN MODERATE (NEGATIVE); URINE GLUCOSE (UA) NEGATIVE (NEGATIVE)
[2023-02-03 19:46] LABS: URINE KETONE NEGATIVE (NEGATIVE); URINE NITRITE POSITIVE (NEGATIVE); URINE PROTEIN 100 (NEGATIVE); URINE UROBILINOGEN 0.2 mg/dL (0.2-1.0)
[2023-02-03 19:47] LABS: EPI CELLS 60 /uL (0-25.1); HYALINE CASTS 7 /uL (0-3.1); URINE BACTERIA 7396 /uL (0-1359); URINE LEUK ESTERASE 2+ (NEGATIVE); URINE RBC 120 /uL (0-23.9); URINE WBC 8836 /uL (0-25.8)
[2023-02-03] MEDS: CHLORHEXIDINE GLUCONATE 4% CLEANSER FOR DECOLONIZATION TP SCH (22:16)
[2023-02-03] MEDS: LACTATED RINGERS SOLUTION 1,000 ML/1,000 ML INFUS.BAG IV SCH (22:17)
[2023-02-03] MEDS: MUPIROCIN 2% TOPICAL OINTMENT FOR DECOLONIZATION NS SCH (22:17)
[2023-02-03] MEDS ORDERED: HEPARIN NA (PORCINE) 5,000 UNITS/ML 1ML VIAL IVPUSH PRN ×2 (22:24)
[2023-02-03] MEDS ORDERED: HEPARIN INFUSION - 25,000 UNITS/500 ML INFUS.BAG IVPB SCH (22:30)
[2023-02-03] MEDS ORDERED: ALBUTEROL SO4 0.083% IH SOL 2.5 MG/3 ML VIAL.NEB. NEB PRN (22:53)
[2023-02-03 22:58] LABS: POTASSIUM 4.6 mmol/L (3.5-5.1)
[2023-02-03 22:59] LABS: CALCIUM 8.4 mg/dL (8.5-10.1)
[2023-02-03 23:04] LABS: CREATININE 2.2 mg/dL (0.55-1.3)
[2023-02-04 00:57] LABS: HEMATOCRIT 28.1 % (32.4-45.2); HEMOGLOBIN 9.1 GM/dL (10.7-15.3); MCH 29.6 pg (25.7-33.7); MCHC 32.4 g/dl (32.0-36.0); MEAN CELL VOLUME 91.2 fl (80-96); MEAN PLT VOLUME 7.2 fl (7.5-11.1); PLATELET COUNT 156 10^3/uL (134-434); RBC 3.08 M/mm3 (3.60-5.2); RDW 16.5 % (11.6-15.6); WHITE BLOOD COUNT 6.4 K/mm3 (4.0-10.0)
[2023-02-04] MEDS ORDERED: ACETAMINOPHEN 1000 MG/100 ML BAG IVPB PRN ×2 (05:30→08:37)
[2023-02-04] MEDS: LEVOTHYROXINE NA 50 MCG TABLET (FP) PO SCH (06:02)
[2023-02-04 07:25] LABS: HEMATOCRIT 24.7 % (32.4-45.2); HEMOGLOBIN 8.1 GM/dL (10.7-15.3); MCHC 32.7 g/dl (32.0-36.0); MEAN CELL VOLUME 91.5 fl (80-96); MEAN PLT VOLUME 7.4 fl (7.5-11.1); PLATELET COUNT 130 10^3/uL (134-434); RDW 16.3 % (11.6-15.6); WHITE BLOOD COUNT 11.3 K/mm3 (4.0-10.0)
[2023-02-04 07:32] LABS: INR 1.4 (0.83-1.09); PROTHROMBIN TIME (PATIENT) 16.2 SEC (9.7-13.0)
[2023-02-04 07:35] LABS: ACTIVATED PTT 36.1 SECONDS (25.2-36.5)
[2023-02-04 07:55] LABS: POTASSIUM 3.8 mmol/L (3.5-5.1)
[2023-02-04 08:13] LABS: CALCIUM 8.1 mg/dL (8.5-10.1)
[2023-02-04 08:14] LABS: ALBUMIN 2.3 g/dl (3.4-5.0); BLOOD UREA NITROGEN 32.7 mg/dL (7-18); MAGNESIUM 1.4 mg/dL (1.8-2.4)
[2023-02-04 08:17] LABS: CREATININE 2.4 mg/dL (0.55-1.3); PHOSPHOROUS 4.4 mg/dL (2.5-4.9)
[2023-02-04 08:19] LABS: TOT PROT 5.4 g/dl (6.4-8.2)
[2023-02-04] MEDS ORDERED: MAGNESIUM 2GM/50ML STERILE WATER IVPB IVPB ONE (09:00)
[2023-02-04 09:15] LABS: ANISOCYTOSIS 0; HELMET CELLS 0; HOWELL-JOLLY BODIES 0; MACROCYTOSIS 0; OVALOCYTE 0; ROULEAU 0; SICKELED CELLS 0; TARGET CELLS 0; TEAR DROP CELLS 0; TOXIC GRANULATION 0
[2023-02-04] MEDS ORDERED: MAGNESIUM 1GM/D5W 100ML - 100 ML IVPB IVPB ONE (09:15)
[2023-02-04] MEDS: SUCRALFATE 1 GM/10 ML UNIT DOSE CUPS PO SCH ×4 (09:34→21:10)
[2023-02-04] MEDS: MUPIROCIN 2% TOPICAL OINTMENT FOR DECOLONIZATION NS SCH ×2 (09:34→21:10)
[2023-02-04] MEDS ORDERED: CEFTRIAXONE 1 GM in DEXTROSE 5%-WATER - 50 ML IVPB SCH (10:00)
[2023-02-04] MEDS ORDERED: LIDOCAINE HCL 2% JELLY (30 ML/TUBE) TP ONE (10:54)
[2023-02-04] MEDS ORDERED: LIDOCAINE HCL 2% JELLY 10 ML CARTRIDGE TP ONE (11:15)
[2023-02-04] MEDS ORDERED: NOREPINEPHRINE BITARTRATE/D5W 8 MG/250 ML BAG IVPB SCH (12:00)
[2023-02-04] MEDS ORDERED: VANCOMYCIN/WATER FOR INJ (PEG) 1,000 MG/200 ML BAG IVPB ONE (13:00)
[2023-02-04] MEDS ORDERED: APIXABAN 5 MG TABLET PO SCH (15:47)
[2023-02-04] MEDS ORDERED: HEPARIN NA (PORCINE) 5,000 UNITS/ML 1ML VIAL IVPUSH PRN ×2 (16:53)
[2023-02-04] MEDS ORDERED: HEPARIN - 25,000 UNIT in SODIUM CHLORIDE 495 ML IV SCH (17:00)
[2023-02-04] MEDS: APIXABAN 5 MG TABLET PO SCH ×2 (18:36→21:10)
[2023-02-04] MEDS: AZTREONAM 1 GM in DEXTROSE 5%-WATER - 50 ML IVPB SCH (21:09)
[2023-02-04] MEDS: ATORVASTATIN CA 20 MG TABLET (FP) PO SCH (21:10)
[2023-02-04] MEDS: MONTELUKAST NA 10 MG TABLET PO SCH (21:10)
[2023-02-04] MEDS: CHLORHEXIDINE GLUCONATE 4% CLEANSER FOR DECOLONIZATION TP SCH (21:10)
[2023-02-04] MEDS: LACTATED RINGERS SOLUTION 1,000 ML/1,000 ML INFUS.BAG IV SCH (21:18)
[2023-02-05] MEDS: LEVOTHYROXINE NA 50 MCG TABLET (FP) PO SCH (06:14)
[2023-02-05] MEDS: SUCRALFATE 1 GM/10 ML UNIT DOSE CUPS PO SCH ×4 (06:14→21:42)
[2023-02-05 07:13] LABS: BASO % 0.2 % (0-2.0); EOS % 0.4 % (0-4.5); HEMATOCRIT 23.3 % (32.4-45.2); HEMOGLOBIN 7.4 GM/dL (10.7-15.3); LYMPH % 7.1 % (8-40); MCH 29.5 pg (25.7-33.7); MCHC 31.9 g/dl (32.0-36.0); MEAN CELL VOLUME 92.5 fl (80-96); MEAN PLT VOLUME 8.2 fl (7.5-11.1); NEUT % 84.3 % (42.8-82.8); PLATELET COUNT 129 10^3/uL (134-434); RBC 2.52 M/mm3 (3.60-5.2); RDW 16.3 % (11.6-15.6)
[2023-02-05 07:19] LABS: POTASSIUM 3.9 mmol/L (3.5-5.1)
[2023-02-05 07:21] LABS: CALCIUM 7.9 mg/dL (8.5-10.1)
[2023-02-05 07:22] LABS: BLOOD UREA NITROGEN 39.4 mg/dL (7-18); MAGNESIUM 2.2 mg/dL (1.8-2.4)
[2023-02-05 07:25] LABS: CREATININE 2.2 mg/dL (0.55-1.3); PHOSPHOROUS 4.7 mg/dL (2.5-4.9)
[2023-02-05 07:27] LABS: BILIRUBIN,TOTAL 0.3 mg/dL (0.2-1); TOT PROT 5.3 g/dl (6.4-8.2)
[2023-02-05] MEDS: MUPIROCIN 2% TOPICAL OINTMENT FOR DECOLONIZATION NS SCH ×2 (09:06→21:56)
[2023-02-05] MEDS: AZTREONAM 1 GM in DEXTROSE 5%-WATER - 50 ML IVPB SCH ×2 (09:06→21:40)
[2023-02-05] MEDS: APIXABAN 5 MG TABLET PO SCH ×2 (09:07→21:42)
[2023-02-05] MEDS ORDERED: ACETAMINOPHEN 1000 MG/100 ML BAG IVPB ONE (11:06)
[2023-02-05] MEDS ORDERED: POLYETHYLENE GLYCOL 3350 255 GM BTL PO ONE (13:00)
[2023-02-05 13:12] LABS: BASO % 0.1 % (0-2.0); EOS % 0.6 % (0-4.5); HEMOGLOBIN 7.5 GM/dL (10.7-15.3); LYMPH % 6.6 % (8-40); MCH 28.8 pg (25.7-33.7); MCHC 31.2 g/dl (32.0-36.0); MEAN CELL VOLUME 92.4 fl (80-96); MEAN PLT VOLUME 8.5 fl (7.5-11.1); MONO % 6.7 % (3.8-10.2); PLATELET COUNT 128 10^3/uL (134-434); RBC 2.59 M/mm3 (3.60-5.2); RDW 16.3 % (11.6-15.6)
[2023-02-05] MEDS ORDERED: POLYETHYLENE GLYCOL (HEALTHYLAX) 3350 17 GM PACKET PO SCH ×4 (15:00→16:30)
[2023-02-05] MEDS: MONTELUKAST NA 10 MG TABLET PO SCH (21:42)
[2023-02-05] MEDS: ATORVASTATIN CA 20 MG TABLET (FP) PO SCH (21:42)
[2023-02-05] MEDS: CHLORHEXIDINE GLUCONATE 4% CLEANSER FOR DECOLONIZATION TP SCH (21:42)
[2023-02-06] MEDS: ACETAMINOPHEN 325 MG TABLET (FP) PO PRN ×3 (02:13→18:25)
[2023-02-06] MEDS: LEVOTHYROXINE NA 50 MCG TABLET (FP) PO SCH (06:24)
[2023-02-06] MEDS: SUCRALFATE 1 GM/10 ML UNIT DOSE CUPS PO SCH ×4 (06:32→21:25)
[2023-02-06 07:01] LABS: HEMATOCRIT 23.6 % (32.4-45.2); HEMOGLOBIN 7.6 GM/dL (10.7-15.3); MCH 29.5 pg (25.7-33.7); MEAN CELL VOLUME 92.1 fl (80-96); MEAN PLT VOLUME 8.3 fl (7.5-11.1); PLATELET COUNT 141 10^3/uL (134-434); RBC 2.56 M/mm3 (3.60-5.2); RDW 16.2 % (11.6-15.6); WHITE BLOOD COUNT 16.6 K/mm3 (4.0-10.0)
[2023-02-06 07:26] LABS: CALCIUM 8.4 mg/dL (8.5-10.1); MAGNESIUM 1.9 mg/dL (1.8-2.4)
[2023-02-06 07:27] LABS: BLOOD UREA NITROGEN 37.4 mg/dL (7-18)
[2023-02-06 07:30] LABS: CREATININE 1.7 mg/dL (0.55-1.3); PHOSPHOROUS 2.3 mg/dL (2.5-4.9)
[2023-02-06 07:31] LABS: BILIRUBIN,TOTAL 0.4 mg/dL (0.2-1); TOT PROT 5.3 g/dl (6.4-8.2)
[2023-02-06] MEDS: APIXABAN 5 MG TABLET PO SCH ×2 (09:45→21:26)
[2023-02-06] MEDS: AZTREONAM 1 GM in DEXTROSE 5%-WATER - 50 ML IVPB SCH (09:45)
[2023-02-06] MEDS: MUPIROCIN 2% TOPICAL OINTMENT FOR DECOLONIZATION NS SCH ×2 (09:45→21:26)
[2023-02-06] MEDS ORDERED: NAPH,MB-DB/K PH,MBDB POWDER PACKET PO ONE (15:00)
[2023-02-06] MEDS ORDERED: hydrALAZINE HCL 20 MG/ML VIAL IVPUSH ONE (20:30)
[2023-02-06] MEDS ORDERED: hydrALAZINE HCL 20 MG/ML VIAL IVPUSH PRN (21:06)
[2023-02-06] MEDS: MONTELUKAST NA 10 MG TABLET PO SCH (21:26)
[2023-02-06] MEDS: ATORVASTATIN CA 20 MG TABLET (FP) PO SCH (21:26)
[2023-02-06] MEDS: CHLORHEXIDINE GLUCONATE 4% CLEANSER FOR DECOLONIZATION TP SCH (21:26)
[2023-02-07] MEDS: LEVOTHYROXINE NA 50 MCG TABLET (FP) PO SCH (06:16)
[2023-02-07] MEDS: SUCRALFATE 1 GM/10 ML UNIT DOSE CUPS PO SCH ×4 (06:58→21:57)
[2023-02-07 07:30] LABS: HEMATOCRIT 26.6 % (32.4-45.2); HEMOGLOBIN 8.6 GM/dL (10.7-15.3); MCH 29.4 pg (25.7-33.7); MCHC 32.3 g/dl (32.0-36.0); MEAN CELL VOLUME 91.1 fl (80-96); MEAN PLT VOLUME 8.2 fl (7.5-11.1); PLATELET COUNT 156 10^3/uL (134-434); RBC 2.92 M/mm3 (3.60-5.2); RDW 16.2 % (11.6-15.6); WHITE BLOOD COUNT 14.6 K/mm3 (4.0-10.0)
[2023-02-07 07:47] LABS: BLOOD UREA NITROGEN 31.9 mg/dL (7-18); CALCIUM 8.1 mg/dL (8.5-10.1)
[2023-02-07 07:51] LABS: CREATININE 1.4 mg/dL (0.55-1.3)
[2023-02-07 07:52] LABS: BILIRUBIN,TOTAL 0.5 mg/dL (0.2-1); TOT PROT 5.3 g/dl (6.4-8.2)
[2023-02-07 09:03] LABS: ANISOCYTOSIS 0; HELMET CELLS 0; HOWELL-JOLLY BODIES 0; MACROCYTOSIS 0; OVALOCYTE 0; ROULEAU 0; SICKELED CELLS 0; TARGET CELLS 0; TEAR DROP CELLS 0; TOXIC GRANULATION 0
[2023-02-07 09:46] LABS: MAGNESIUM 1.7 mg/dL (1.8-2.4)
[2023-02-07] MEDS ORDERED: POLYETHYLENE GLYCOL (HEALTHYLAX) 3350 17 GM PACKET PO SCH (10:00)
[2023-02-07] MEDS ORDERED: LORATADINE 10 MG TABLET PO SCH (10:00)
[2023-02-07] MEDS ORDERED: FLUTICASONE PROP 0.05% 16 GM NASAL SPRAY NS SCH (10:00)
[2023-02-07] MEDS: MUPIROCIN 2% TOPICAL OINTMENT FOR DECOLONIZATION NS SCH (10:02)
[2023-02-07] MEDS: APIXABAN 5 MG TABLET PO SCH ×2 (10:02→21:14)
[2023-02-07] MEDS: ACETAMINOPHEN 325 MG TABLET (FP) PO PRN (10:02)
[2023-02-07] MEDS ORDERED: ALBUTEROL SO4 0.083% IH SOL 2.5 MG/3 ML VIAL.NEB. NEB PRN (12:26)
[2023-02-07] MEDS ORDERED: MAGNESIUM 1GM/D5W 100ML - 100 ML IVPB IVPB ONE (12:26)
[2023-02-07] MEDS ORDERED: hydrALAZINE HCL 20 MG/ML VIAL IVPUSH PRN (12:26)
[2023-02-07 14:12] VITALS: BMI 34.5
[2023-02-07] MEDS: ATORVASTATIN CA 20 MG TABLET (FP) PO SCH (21:14)
[2023-02-07] MEDS: MONTELUKAST NA 10 MG TABLET PO SCH (21:14)
[2023-02-08] MEDS: LEVOTHYROXINE NA 50 MCG TABLET (FP) PO SCH (06:01)
[2023-02-08] MEDS: SUCRALFATE 1 GM/10 ML UNIT DOSE CUPS PO SCH ×4 (06:01→21:25)
[2023-02-08] MEDS: APIXABAN 5 MG TABLET PO SCH ×2 (10:09→21:26)
[2023-02-08] MEDS: POLYETHYLENE GLYCOL (HEALTHYLAX) 3350 17 GM PACKET PO SCH (10:09)
[2023-02-08] MEDS: LORATADINE 10 MG TABLET PO SCH (10:09)
[2023-02-08] MEDS: FLUTICASONE PROP 0.05% 16 GM NASAL SPRAY NS SCH ×2 (11:34→13:49)
[2023-02-08] MEDS: ARTIFICIAL TEARS (POLYVINYL ALCOHOL) OPTH DROPS OU PRN (11:43)
[2023-02-08 12:32] LABS: HEMATOCRIT 32.2 % (32.4-45.2); HEMOGLOBIN 10.3 GM/dL (10.7-15.3); MCH 28.7 pg (25.7-33.7); MCHC 31.9 g/dl (32.0-36.0); MEAN CELL VOLUME 89.7 fl (80-96); MEAN PLT VOLUME 7.1 fl (7.5-11.1); PLATELET COUNT 188 10^3/uL (134-434); RBC 3.58 M/mm3 (3.60-5.2); RDW 16.8 % (11.6-15.6); WHITE BLOOD COUNT 14.4 K/mm3 (4.0-10.0)
[2023-02-08 13:52] LABS: ANISOCYTOSIS 3+; MACROCYTOSIS 0
[2023-02-08 13:59] LABS: CHLORIDE 109 mmol/L (98-107); POTASSIUM 4.1 mmol/L (3.5-5.1); SODIUM 140 mmol/L (136-145)
[2023-02-08 14:03] LABS: CALCIUM 8.5 mg/dL (8.5-10.1)
[2023-02-08 14:04] LABS: ALBUMIN 2.4 g/dl (3.4-5.0); ANION GAP 11 MMOL/L (8-16); BLOOD UREA NITROGEN 23.8 mg/dL (7-18); CO2 21 mmol/L (21-32); GLUCOSE,RANDOM 144 mg/dL (74-106)
[2023-02-08 14:06] LABS: IRON SERUM 33 ug/dL (50-175); TOTAL IRON BINDING CAPACITY 228 ug/dL (250-450)
[2023-02-08 17:02] LABS: POTASSIUM 3.8 mmol/L (3.5-5.1)
[2023-02-08 17:04] LABS: ALBUMIN 2.2 g/dl (3.4-5.0); BLOOD UREA NITROGEN 23.8 mg/dL (7-18); CALCIUM 8.6 mg/dL (8.5-10.1)
[2023-02-08 17:07] LABS: BILIRUBIN,DIRECT 0.1 mg/dL (0.0-0.2); CREATININE 1.3 mg/dL (0.55-1.3)
[2023-02-08 17:09] LABS: BILIRUBIN,TOTAL 0.2 mg/dL (0.2-1); TOT PROT 6.2 g/dl (6.4-8.2)
[2023-02-08] MEDS ORDERED: IRON SUCROSE INJECTION 200 MG in SODIUM CHLORIDE 90 ML IVPB ONE (18:44)
[2023-02-08] MEDS: ATORVASTATIN CA 20 MG TABLET (FP) PO SCH (21:26)
[2023-02-08] MEDS: MONTELUKAST NA 10 MG TABLET PO SCH (21:26)
[2023-02-09] MEDS: SUCRALFATE 1 GM/10 ML UNIT DOSE CUPS PO SCH ×4 (06:14→22:10)
[2023-02-09] MEDS: LEVOTHYROXINE NA 50 MCG TABLET (FP) PO SCH (06:14)
[2023-02-09 08:51] LABS: HEMATOCRIT 27.5 % (32.4-45.2); MCH 29.3 pg (25.7-33.7); MCHC 32.7 g/dl (32.0-36.0); MEAN CELL VOLUME 89.7 fl (80-96); MEAN PLT VOLUME 7.5 fl (7.5-11.1); PLATELET COUNT 185 10^3/uL (134-434); RBC 3.06 M/mm3 (3.60-5.2); RDW 16.5 % (11.6-15.6); WHITE BLOOD COUNT 14.8 K/mm3 (4.0-10.0)
[2023-02-09 09:06] LABS: POTASSIUM 3.8 mmol/L (3.5-5.1)
[2023-02-09 09:16] LABS: ALBUMIN 2.3 g/dl (3.4-5.0); BLOOD UREA NITROGEN 23.7 mg/dL (7-18); CALCIUM 8.5 mg/dL (8.5-10.1)
[2023-02-09 09:20] LABS: CREATININE 1.1 mg/dL (0.55-1.3)
[2023-02-09 09:21] LABS: BILIRUBIN,TOTAL 0.3 mg/dL (0.2-1); TOT PROT 6.2 g/dl (6.4-8.2)
[2023-02-09 10:04] LABS: ANISOCYTOSIS 2+; MACROCYTOSIS 0
[2023-02-09] MEDS: ARTIFICIAL TEARS (POLYVINYL ALCOHOL) OPTH DROPS OU PRN (10:38)
[2023-02-09] MEDS: FLUTICASONE PROP 0.05% 16 GM NASAL SPRAY NS SCH (10:39)
[2023-02-09] MEDS: LORATADINE 10 MG TABLET PO SCH (10:39)
[2023-02-09] MEDS: ACETAMINOPHEN 325 MG TABLET (FP) PO PRN ×2 (10:39→22:11)
[2023-02-09] MEDS: POLYETHYLENE GLYCOL (HEALTHYLAX) 3350 17 GM PACKET PO SCH (10:40)
[2023-02-09] MEDS: APIXABAN 5 MG TABLET PO SCH ×2 (10:40→22:11)
[2023-02-09 12:30] LABS: EPI CELLS 0 /uL (0-25.1); HYALINE CASTS 0 /uL (0-3.1); PH,URINE 5.5 (5.0-8.0); URINE APPEARANCE CLEAR; URINE BACTERIA 3 /uL (0-1359); URINE BILIRUBIN NEGATIVE (NEGATIVE); URINE COLOR ORANGE; URINE GLUCOSE (UA) NEGATIVE (NEGATIVE); URINE KETONE NEGATIVE (NEGATIVE); URINE LEUK ESTERASE TRACE (NEGATIVE); URINE NITRITE NEGATIVE (NEGATIVE); URINE PROTEIN 2+ (NEGATIVE); URINE RBC 178 /uL (0-23.9); URINE UROBILINOGEN 0.2 mg/dL (0.2-1.0); URINE WBC 0 /uL (0-25.8)
[2023-02-09] MEDS: ATORVASTATIN CA 20 MG TABLET (FP) PO SCH (22:11)
[2023-02-09] MEDS: MONTELUKAST NA 10 MG TABLET PO SCH (22:11)
[2023-02-10] MEDS: SUCRALFATE 1 GM/10 ML UNIT DOSE CUPS PO SCH ×4 (07:01→22:23)
[2023-02-10] MEDS: LEVOTHYROXINE NA 50 MCG TABLET (FP) PO SCH (07:01)
[2023-02-10] MEDS: APIXABAN 5 MG TABLET PO SCH ×2 (10:45→22:23)
[2023-02-10] MEDS: LORATADINE 10 MG TABLET PO SCH (10:45)
[2023-02-10] MEDS: FLUTICASONE PROP 0.05% 16 GM NASAL SPRAY NS SCH (10:45)
[2023-02-10] MEDS: POLYETHYLENE GLYCOL (HEALTHYLAX) 3350 17 GM PACKET PO SCH ×2 (10:45→10:47)
[2023-02-10] MEDS: ARTIFICIAL TEARS (POLYVINYL ALCOHOL) OPTH DROPS OU PRN (10:53)
[2023-02-10] MEDS: ATORVASTATIN CA 20 MG TABLET (FP) PO SCH (22:23)
[2023-02-10] MEDS: MONTELUKAST NA 10 MG TABLET PO SCH (22:23)
[2023-02-10] MEDS: ACETAMINOPHEN 325 MG TABLET (FP) PO PRN (22:24)
[2023-02-11] MEDS: SUCRALFATE 1 GM/10 ML UNIT DOSE CUPS PO SCH ×4 (06:27→21:42)
[2023-02-11] MEDS: LEVOTHYROXINE NA 50 MCG TABLET (FP) PO SCH (06:27)
[2023-02-11] MEDS ORDERED: APIXABAN 5 MG TABLET PO SCH (10:00)
[2023-02-11] MEDS: ARTIFICIAL TEARS (POLYVINYL ALCOHOL) OPTH DROPS OU PRN (10:09)
[2023-02-11] MEDS: FLUTICASONE PROP 0.05% 16 GM NASAL SPRAY NS SCH (10:09)
[2023-02-11] MEDS: POLYETHYLENE GLYCOL (HEALTHYLAX) 3350 17 GM PACKET PO SCH (10:12)
[2023-02-11] MEDS: LORATADINE 10 MG TABLET PO SCH (10:12)
[2023-02-11 11:39] LABS: HEMATOCRIT 31.3 % (32.4-45.2); HEMOGLOBIN 9.6 GM/dL (10.7-15.3); MCH 28.2 pg (25.7-33.7); MCHC 30.7 g/dl (32.0-36.0); MEAN PLT VOLUME 7.3 fl (7.5-11.1); PLATELET COUNT 216 10^3/uL (134-434); RBC 3.41 M/mm3 (3.60-5.2); RDW 16.7 % (11.6-15.6); WHITE BLOOD COUNT 11.7 K/mm3 (4.0-10.0)
[2023-02-11 12:03] LABS: ANISOCYTOSIS 1+; MACROCYTOSIS 0
[2023-02-11 12:15] LABS: POTASSIUM 3.9 mmol/L (3.5-5.1)
[2023-02-11 12:17] LABS: CALCIUM 8.9 mg/dL (8.5-10.1)
[2023-02-11 12:18] LABS: ALBUMIN 2.3 g/dl (3.4-5.0)
[2023-02-11 12:21] LABS: CREATININE 1.1 mg/dL (0.55-1.3)
[2023-02-11 12:22] LABS: BILIRUBIN,TOTAL 0.4 mg/dL (0.2-1); TOT PROT 6.5 g/dl (6.4-8.2)
[2023-02-11] MEDS: ACETAMINOPHEN 325 MG TABLET (FP) PO PRN (18:04)
[2023-02-11] MEDS ORDERED: ALBUTEROL SO4 0.083% IH SOL 2.5 MG/3 ML VIAL.NEB. NEB PRN (19:23)
[2023-02-11] MEDS ORDERED: hydrALAZINE HCL 20 MG/ML VIAL IVPUSH PRN (19:23)
[2023-02-11] MEDS: APIXABAN 5 MG TABLET PO SCH (21:42)
[2023-02-11] MEDS: MONTELUKAST NA 10 MG TABLET PO SCH (21:42)
[2023-02-11] MEDS: ATORVASTATIN CA 20 MG TABLET (FP) PO SCH (21:42)
[2023-02-12] MEDS: ACETAMINOPHEN 325 MG TABLET (FP) PO PRN ×2 (03:45→20:05)
[2023-02-12] MEDS: SUCRALFATE 1 GM/10 ML UNIT DOSE CUPS PO SCH ×4 (06:13→21:22)
[2023-02-12] MEDS: LEVOTHYROXINE NA 50 MCG TABLET (FP) PO SCH (06:14)
[2023-02-12] MEDS: APIXABAN 5 MG TABLET PO SCH ×2 (11:03→21:22)
[2023-02-12] MEDS: LORATADINE 10 MG TABLET PO SCH (11:03)
[2023-02-12] MEDS: POLYETHYLENE GLYCOL (HEALTHYLAX) 3350 17 GM PACKET PO SCH (11:03)
[2023-02-12] MEDS: FLUTICASONE PROP 0.05% 16 GM NASAL SPRAY NS SCH (11:04)
[2023-02-12] MEDS: AZTREONAM 1 GM VIAL (RESTRICTED TO ID) IVPB SCH (21:21)
[2023-02-12] MEDS: ATORVASTATIN CA 20 MG TABLET (FP) PO SCH (21:22)
[2023-02-12] MEDS: MONTELUKAST NA 10 MG TABLET PO SCH (21:22)
[2023-02-12] MEDS ORDERED: AZTREONAM 1 GM VIAL (RESTRICTED TO ID) IVPB SCH (22:00)
[2023-02-13] MEDS: LEVOTHYROXINE NA 50 MCG TABLET (FP) PO SCH (06:01)
[2023-02-13] MEDS: SUCRALFATE 1 GM/10 ML UNIT DOSE CUPS PO SCH ×4 (06:01→21:09)
[2023-02-13] MEDS: LORATADINE 10 MG TABLET PO SCH (09:35)
[2023-02-13] MEDS: APIXABAN 5 MG TABLET PO SCH ×2 (09:35→21:10)
[2023-02-13] MEDS: POLYETHYLENE GLYCOL (HEALTHYLAX) 3350 17 GM PACKET PO SCH (09:36)
[2023-02-13 09:52] LABS: BASO % 0.3 % (0-2.0); EOS % 1.5 % (0-4.5); HEMATOCRIT 27.4 % (32.4-45.2); HEMOGLOBIN 8.9 GM/dL (10.7-15.3); LYMPH % 15.2 % (8-40); MCH 28.6 pg (25.7-33.7); MCHC 32.4 g/dl (32.0-36.0); MEAN CELL VOLUME 88.2 fl (80-96); MEAN PLT VOLUME 7.1 fl (7.5-11.1); MONO % 7.9 % (3.8-10.2); NEUT % 75.1 % (42.8-82.8); PLATELET COUNT 251 10^3/uL (134-434); RBC 3.11 M/mm3 (3.60-5.2); RDW 15.8 % (11.6-15.6); WHITE BLOOD COUNT 12.9 K/mm3 (4.0-10.0)
[2023-02-13 09:59] LABS: POTASSIUM 3.5 mmol/L (3.5-5.1)
[2023-02-13 10:00] LABS: CALCIUM 8.8 mg/dL (8.5-10.1)
[2023-02-13 10:01] LABS: BLOOD UREA NITROGEN 19.7 mg/dL (7-18)
[2023-02-13 10:04] LABS: CREATININE 1.2 mg/dL (0.55-1.3)
[2023-02-13] MEDS ORDERED: ACETAMINOPHEN 1000 MG/100 ML BAG IVPB ONE ×2 (10:23→14:00)
[2023-02-13] MEDS: FLUTICASONE PROP 0.05% 16 GM NASAL SPRAY NS SCH (11:14)
[2023-02-13] MEDS: ARTIFICIAL TEARS (POLYVINYL ALCOHOL) OPTH DROPS OU PRN (11:14)
[2023-02-13] MEDS: AZTREONAM 1 GM VIAL (RESTRICTED TO ID) IVPB SCH (13:10)
[2023-02-13 14:24] LABS: EPI CELLS 31 /uL (0-25.1); HYALINE CASTS 5 /uL (0-3.1); PH,URINE 5.5 (5.0-8.0); URINE APPEARANCE CLEAR; URINE BACTERIA 4 /uL (0-1359); URINE BILIRUBIN NEGATIVE (NEGATIVE); URINE COLOR YELLOW; URINE GLUCOSE (UA) NEGATIVE (NEGATIVE); URINE KETONE NEGATIVE (NEGATIVE); URINE LEUK ESTERASE TRACE (NEGATIVE); URINE NITRITE NEGATIVE (NEGATIVE); URINE PROTEIN 1+ (NEGATIVE); URINE UROBILINOGEN 0.2 mg/dL (0.2-1.0); URINE WBC 102 /uL (0-25.8)
[2023-02-13 14:36] LABS: URINE RBC 475.9 /uL (0-23.9)
[2023-02-13] MEDS ORDERED: IRON SUCROSE INJECTION 200 MG in SODIUM CHLORIDE 90 ML IVPB ONE (17:00)
[2023-02-13] MEDS: ATORVASTATIN CA 20 MG TABLET (FP) PO SCH (21:10)
[2023-02-13] MEDS: MONTELUKAST NA 10 MG TABLET PO SCH (21:10)
[2023-02-13] MEDS ORDERED: AZTREONAM 1 GM in DEXTROSE 5%-WATER - 50 ML IVPB SCH (22:00)
[2023-02-14] MEDS: SUCRALFATE 1 GM/10 ML UNIT DOSE CUPS PO SCH ×4 (06:14→21:17)
[2023-02-14] MEDS: LEVOTHYROXINE NA 50 MCG TABLET (FP) PO SCH (06:15)
[2023-02-14] MEDS: APIXABAN 5 MG TABLET PO SCH ×2 (09:56→21:17)
[2023-02-14] MEDS: FLUTICASONE PROP 0.05% 16 GM NASAL SPRAY NS SCH (09:56)
[2023-02-14] MEDS: LORATADINE 10 MG TABLET PO SCH (09:56)
[2023-02-14] MEDS: ARTIFICIAL TEARS (POLYVINYL ALCOHOL) OPTH DROPS OU PRN (09:57)
[2023-02-14] MEDS: POLYETHYLENE GLYCOL (HEALTHYLAX) 3350 17 GM PACKET PO SCH (10:00)
[2023-02-14] MEDS: ACETAMINOPHEN 325 MG TABLET (FP) PO PRN ×2 (15:34→22:00)
[2023-02-14] MEDS: MONTELUKAST NA 10 MG TABLET PO SCH (21:17)
[2023-02-14] MEDS: ATORVASTATIN CA 20 MG TABLET (FP) PO SCH (21:17)
[2023-02-15] MEDS: SUCRALFATE 1 GM/10 ML UNIT DOSE CUPS PO SCH ×4 (06:15→21:21)
[2023-02-15] MEDS: LEVOTHYROXINE NA 50 MCG TABLET (FP) PO SCH (06:15)
[2023-02-15] MEDS ORDERED: POTASSIUM CHLORIDE ORAL LIQUID 20 MEQ/15 ML PO ONE (09:43)
[2023-02-15] MEDS: ACETAMINOPHEN 325 MG TABLET (FP) PO PRN ×2 (10:06→18:31)
[2023-02-15] MEDS: LORATADINE 10 MG TABLET PO SCH (10:06)
[2023-02-15] MEDS: APIXABAN 5 MG TABLET PO SCH ×2 (10:06→21:21)
[2023-02-15] MEDS: POLYETHYLENE GLYCOL (HEALTHYLAX) 3350 17 GM PACKET PO SCH (10:07)
[2023-02-15] MEDS: FLUTICASONE PROP 0.05% 16 GM NASAL SPRAY NS SCH (10:08)
[2023-02-15] MEDS: ARTIFICIAL TEARS (POLYVINYL ALCOHOL) OPTH DROPS OU PRN (10:08)
[2023-02-15 11:01] LABS: HEMATOCRIT 28.8 % (32.4-45.2); HEMOGLOBIN 9.3 GM/dL (10.7-15.3); MCH 29.4 pg (25.7-33.7); MCHC 32.2 g/dl (32.0-36.0); MEAN CELL VOLUME 91.3 fl (80-96); MEAN PLT VOLUME 7.6 fl (7.5-11.1); PLATELET COUNT 326 10^3/uL (134-434); RBC 3.15 M/mm3 (3.60-5.2); RDW 15.6 % (11.6-15.6); WHITE BLOOD COUNT 15.6 K/mm3 (4.0-10.0)
[2023-02-15 11:40] LABS: POTASSIUM 4.2 mmol/L (3.5-5.1)
[2023-02-15 11:42] LABS: BLOOD UREA NITROGEN 21.3 mg/dL (7-18); CALCIUM 8.3 mg/dL (8.5-10.1)
[2023-02-15 11:45] LABS: CREATININE 1.3 mg/dL (0.55-1.3)
[2023-02-15] MEDS: DULoxetine HCL 20 MG CAPSULE.DR PO SCH (12:30)
[2023-02-15 14:23] LABS: ERYTHROCYTE SEDIMENTATION RATE 119 mm/hr (0-30)
[2023-02-15] MEDS: MONTELUKAST NA 10 MG TABLET PO SCH (21:22)
[2023-02-15] MEDS: ATORVASTATIN CA 20 MG TABLET (FP) PO SCH (21:22)
[2023-02-16] MEDS: LEVOTHYROXINE NA 50 MCG TABLET (FP) PO SCH (06:20)
[2023-02-16] MEDS: SUCRALFATE 1 GM/10 ML UNIT DOSE CUPS PO SCH ×4 (06:20→22:28)
[2023-02-16 09:19] LABS: BASO % 0.4 % (0-2.0); EOS % 2.1 % (0-4.5); HEMOGLOBIN 8.7 GM/dL (10.7-15.3); LYMPH % 15.9 % (8-40); MCH 29.5 pg (25.7-33.7); MCHC 33.5 g/dl (32.0-36.0); MEAN CELL VOLUME 88.1 fl (80-96); MEAN PLT VOLUME 6.7 fl (7.5-11.1); MONO % 8.2 % (3.8-10.2); NEUT % 73.4 % (42.8-82.8); PLATELET COUNT 351 10^3/uL (134-434); RBC 2.95 M/mm3 (3.60-5.2); RDW 15.8 % (11.6-15.6); WHITE BLOOD COUNT 13.1 K/mm3 (4.0-10.0)
[2023-02-16 09:42] LABS: POTASSIUM 4.2 mmol/L (3.5-5.1)
[2023-02-16 09:57] LABS: ALBUMIN 2.1 g/dl (3.4-5.0); BLOOD UREA NITROGEN 23.6 mg/dL (7-18)
[2023-02-16] MEDS: APIXABAN 5 MG TABLET PO SCH ×2 (09:58→22:27)
[2023-02-16] MEDS: LORATADINE 10 MG TABLET PO SCH (09:58)
[2023-02-16] MEDS: DULoxetine HCL 20 MG CAPSULE.DR PO SCH (09:58)
[2023-02-16] MEDS: POLYETHYLENE GLYCOL (HEALTHYLAX) 3350 17 GM PACKET PO SCH ×2 (09:58→10:08)
[2023-02-16 10:00] LABS: CREATININE 1.2 mg/dL (0.55-1.3)
[2023-02-16] MEDS: FLUTICASONE PROP 0.05% 16 GM NASAL SPRAY NS SCH (10:01)
[2023-02-16 10:02] LABS: BILIRUBIN,TOTAL 0.4 mg/dL (0.2-1)
[2023-02-16] MEDS: ARTIFICIAL TEARS (POLYVINYL ALCOHOL) OPTH DROPS OU PRN (10:02)
[2023-02-16] MEDS ORDERED: predniSONE 5 MG TABLET (UD) PO SCH ×2 (10:30)
[2023-02-16] MEDS: ACETAMINOPHEN 325 MG TABLET (FP) PO PRN (12:06)
[2023-02-16] MEDS: ATORVASTATIN CA 20 MG TABLET (FP) PO SCH (22:27)
[2023-02-16] MEDS: MONTELUKAST NA 10 MG TABLET PO SCH (22:27)
[2023-02-17] MEDS: LEVOTHYROXINE NA 50 MCG TABLET (FP) PO SCH (06:24)
[2023-02-17] MEDS: SUCRALFATE 1 GM/10 ML UNIT DOSE CUPS PO SCH ×4 (06:32→21:33)
[2023-02-17] MEDS: DULoxetine HCL 20 MG CAPSULE.DR PO SCH (10:06)
[2023-02-17] MEDS: predniSONE 5 MG TABLET (UD) PO SCH (10:06)
[2023-02-17] MEDS: APIXABAN 5 MG TABLET PO SCH ×2 (10:06→21:33)
[2023-02-17] MEDS: LORATADINE 10 MG TABLET PO SCH (10:06)
[2023-02-17] MEDS: ARTIFICIAL TEARS (POLYVINYL ALCOHOL) OPTH DROPS OU PRN (10:09)
[2023-02-17] MEDS: FLUTICASONE PROP 0.05% 16 GM NASAL SPRAY NS SCH (10:09)
[2023-02-17] MEDS: POLYETHYLENE GLYCOL (HEALTHYLAX) 3350 17 GM PACKET PO SCH (11:30)
[2023-02-17] MEDS: ACETAMINOPHEN 325 MG TABLET (FP) PO PRN (21:33)
[2023-02-17] MEDS: MONTELUKAST NA 10 MG TABLET PO SCH (21:33)
[2023-02-17] MEDS: ATORVASTATIN CA 20 MG TABLET (FP) PO SCH (21:33)
[2023-02-18] MEDS: SUCRALFATE 1 GM/10 ML UNIT DOSE CUPS PO SCH ×4 (06:24→21:54)
[2023-02-18] MEDS: LEVOTHYROXINE NA 50 MCG TABLET (FP) PO SCH (06:24)
[2023-02-18] MEDS: predniSONE 5 MG TABLET (UD) PO SCH (09:54)
[2023-02-18] MEDS: APIXABAN 5 MG TABLET PO SCH ×2 (09:54→21:53)
[2023-02-18] MEDS: LORATADINE 10 MG TABLET PO SCH (09:54)
[2023-02-18] MEDS: DULoxetine HCL 20 MG CAPSULE.DR PO SCH (09:54)
[2023-02-18] MEDS: FLUTICASONE PROP 0.05% 16 GM NASAL SPRAY NS SCH (09:55)
[2023-02-18] MEDS: POLYETHYLENE GLYCOL (HEALTHYLAX) 3350 17 GM PACKET PO SCH (09:57)
[2023-02-18 10:03] LABS: BASO % 1.1 % (0-2.0); EOS % 0.7 % (0-4.5); HEMATOCRIT 25.1 % (32.4-45.2); HEMOGLOBIN 8.1 GM/dL (10.7-15.3); MCH 29.1 pg (25.7-33.7); MCHC 32.2 g/dl (32.0-36.0); MEAN CELL VOLUME 90.4 fl (80-96); MEAN PLT VOLUME 7.4 fl (7.5-11.1); MONO % 7.4 % (3.8-10.2); NEUT % 72.8 % (42.8-82.8); PLATELET COUNT 374 10^3/uL (134-434); RBC 2.78 M/mm3 (3.60-5.2); RDW 15.5 % (11.6-15.6); WHITE BLOOD COUNT 11.5 K/mm3 (4.0-10.0)
[2023-02-18 10:50] LABS: POTASSIUM 4.1 mmol/L (3.5-5.1)
[2023-02-18 10:52] LABS: BLOOD UREA NITROGEN 29.5 mg/dL (7-18); CALCIUM 9.5 mg/dL (8.5-10.1)
[2023-02-18 10:55] LABS: CREATININE 1.3 mg/dL (0.55-1.3)
[2023-02-18 10:57] LABS: BILIRUBIN,TOTAL 0.2 mg/dL (0.2-1); TOT PROT 7.1 g/dl (6.4-8.2)
[2023-02-18] MEDS: ATORVASTATIN CA 20 MG TABLET (FP) PO SCH (21:50)
[2023-02-18] MEDS: MONTELUKAST NA 10 MG TABLET PO SCH (21:54)
[2023-02-19] MEDS: SUCRALFATE 1 GM/10 ML UNIT DOSE CUPS PO SCH ×4 (06:44→21:50)
[2023-02-19] MEDS: LEVOTHYROXINE NA 50 MCG TABLET (FP) PO SCH (06:44)
[2023-02-19] MEDS: FLUTICASONE PROP 0.05% 16 GM NASAL SPRAY NS SCH (09:05)
[2023-02-19] MEDS: LORATADINE 10 MG TABLET PO SCH (09:09)
[2023-02-19] MEDS: APIXABAN 5 MG TABLET PO SCH ×2 (09:09→21:50)
[2023-02-19] MEDS: predniSONE 5 MG TABLET (UD) PO SCH (09:09)
[2023-02-19] MEDS: DULoxetine HCL 20 MG CAPSULE.DR PO SCH (09:09)
[2023-02-19] MEDS: POLYETHYLENE GLYCOL (HEALTHYLAX) 3350 17 GM PACKET PO SCH (09:10)
[2023-02-19] MEDS: ACETAMINOPHEN 325 MG TABLET (FP) PO PRN (10:15)
[2023-02-19] MEDS: MONTELUKAST NA 10 MG TABLET PO SCH (21:50)
[2023-02-19] MEDS: ATORVASTATIN CA 20 MG TABLET (FP) PO SCH (21:50)
[2023-02-20] MEDS: LEVOTHYROXINE NA 50 MCG TABLET (FP) PO SCH (06:30)
[2023-02-20] MEDS: SUCRALFATE 1 GM/10 ML UNIT DOSE CUPS PO SCH ×4 (06:30→21:02)
[2023-02-20] MEDS: POLYETHYLENE GLYCOL (HEALTHYLAX) 3350 17 GM PACKET PO SCH (09:28)
[2023-02-20] MEDS: DULoxetine HCL 20 MG CAPSULE.DR PO SCH (09:28)
[2023-02-20] MEDS: predniSONE 5 MG TABLET (UD) PO SCH (09:28)
[2023-02-20] MEDS: LORATADINE 10 MG TABLET PO SCH (09:28)
[2023-02-20] MEDS: APIXABAN 5 MG TABLET PO SCH ×2 (09:28→21:02)
[2023-02-20] MEDS: FLUTICASONE PROP 0.05% 16 GM NASAL SPRAY NS SCH (09:29)
[2023-02-20] MEDS: ATORVASTATIN CA 20 MG TABLET (FP) PO SCH (21:02)
[2023-02-20] MEDS: MONTELUKAST NA 10 MG TABLET PO SCH (21:02)
[2023-02-21] MEDS: LEVOTHYROXINE NA 50 MCG TABLET (FP) PO SCH (06:04)
[2023-02-21] MEDS: SUCRALFATE 1 GM/10 ML UNIT DOSE CUPS PO SCH ×4 (06:04→21:48)
[2023-02-21] MEDS: predniSONE 5 MG TABLET (UD) PO SCH (09:05)
[2023-02-21] MEDS: POLYETHYLENE GLYCOL (HEALTHYLAX) 3350 17 GM PACKET PO SCH (09:05)
[2023-02-21] MEDS: DULoxetine HCL 20 MG CAPSULE.DR PO SCH (09:05)
[2023-02-21] MEDS: APIXABAN 5 MG TABLET PO SCH ×2 (09:05→21:48)
[2023-02-21] MEDS: LORATADINE 10 MG TABLET PO SCH (09:05)
[2023-02-21] MEDS: FLUTICASONE PROP 0.05% 16 GM NASAL SPRAY NS SCH (09:06)
[2023-02-21] MEDS: ATORVASTATIN CA 20 MG TABLET (FP) PO SCH (21:47)
[2023-02-21] MEDS: MONTELUKAST NA 10 MG TABLET PO SCH (21:48)
[2023-02-22] MEDS: LEVOTHYROXINE NA 50 MCG TABLET (FP) PO SCH (06:08)
[2023-02-22] MEDS: SUCRALFATE 1 GM/10 ML UNIT DOSE CUPS PO SCH ×4 (06:08→21:53)
[2023-02-22 08:15] LABS: BASO % 0.2 % (0-2.0); HEMATOCRIT 25.6 % (32.4-45.2); HEMOGLOBIN 8.5 GM/dL (10.7-15.3); LYMPH % 32.6 % (8-40); MCH 29.5 pg (25.7-33.7); MCHC 33.3 g/dl (32.0-36.0); MEAN CELL VOLUME 88.7 fl (80-96); MEAN PLT VOLUME 6.5 fl (7.5-11.1); MONO % 10.4 % (3.8-10.2); NEUT % 54.8 % (42.8-82.8); PLATELET COUNT 434 10^3/uL (134-434); RBC 2.89 M/mm3 (3.60-5.2); RDW 15.7 % (11.6-15.6); WHITE BLOOD COUNT 9.9 K/mm3 (4.0-10.0)
[2023-02-22 09:01] LABS: ALBUMIN 2.2 g/dl (3.4-5.0); BILIRUBIN,TOTAL 0.2 mg/dL (0.2-1); BLOOD UREA NITROGEN 38.1 mg/dL (7-18); CALCIUM 9.2 mg/dL (8.5-10.1); CREATININE 1.2 mg/dL (0.55-1.3); POTASSIUM 4.5 mmol/L (3.5-5.1); TOT PROT 6.9 g/dl (6.4-8.2)
[2023-02-22] MEDS: POLYETHYLENE GLYCOL (HEALTHYLAX) 3350 17 GM PACKET PO SCH (09:24)
[2023-02-22] MEDS: LORATADINE 10 MG TABLET PO SCH (09:24)
[2023-02-22] MEDS: predniSONE 5 MG TABLET (UD) PO SCH (09:24)
[2023-02-22] MEDS: DULoxetine HCL 20 MG CAPSULE.DR PO SCH (09:24)
[2023-02-22] MEDS: APIXABAN 5 MG TABLET PO SCH ×2 (09:24→21:54)
[2023-02-22] MEDS: FLUTICASONE PROP 0.05% 16 GM NASAL SPRAY NS SCH (09:27)
[2023-02-22 17:06] LABS: C-ANCA <1:20 titer (Neg:<1:20)
[2023-02-22] MEDS: ATORVASTATIN CA 20 MG TABLET (FP) PO SCH (21:54)
[2023-02-22] MEDS: MONTELUKAST NA 10 MG TABLET PO SCH (21:54)
[2023-02-23] MEDS: SUCRALFATE 1 GM/10 ML UNIT DOSE CUPS PO SCH ×4 (06:09→22:17)
[2023-02-23] MEDS: LEVOTHYROXINE NA 50 MCG TABLET (FP) PO SCH (06:09)
[2023-02-23] MEDS: predniSONE 5 MG TABLET (UD) PO SCH (09:12)
[2023-02-23] MEDS: LORATADINE 10 MG TABLET PO SCH (09:13)
[2023-02-23] MEDS: APIXABAN 5 MG TABLET PO SCH ×2 (09:13→22:17)
[2023-02-23] MEDS: FLUTICASONE PROP 0.05% 16 GM NASAL SPRAY NS SCH (09:13)
[2023-02-23] MEDS: POLYETHYLENE GLYCOL (HEALTHYLAX) 3350 17 GM PACKET PO SCH (09:14)
[2023-02-23] MEDS: DULoxetine HCL 20 MG CAPSULE.DR PO SCH (09:18)
[2023-02-23] MEDS: ATORVASTATIN CA 20 MG TABLET (FP) PO SCH (22:17)
[2023-02-23] MEDS: MONTELUKAST NA 10 MG TABLET PO SCH (22:17)
[2023-02-24] MEDS: LEVOTHYROXINE NA 50 MCG TABLET (FP) PO SCH (06:06)
[2023-02-24] MEDS: SUCRALFATE 1 GM/10 ML UNIT DOSE CUPS PO SCH ×4 (06:06→22:05)
[2023-02-24] MEDS: APIXABAN 5 MG TABLET PO SCH ×2 (09:54→22:05)
[2023-02-24] MEDS: DULoxetine HCL 20 MG CAPSULE.DR PO SCH (09:54)
[2023-02-24] MEDS: predniSONE 5 MG TABLET (UD) PO SCH (09:54)
[2023-02-24] MEDS: LORATADINE 10 MG TABLET PO SCH (09:54)
[2023-02-24] MEDS: FLUTICASONE PROP 0.05% 16 GM NASAL SPRAY NS SCH (10:00)
[2023-02-24] MEDS: POLYETHYLENE GLYCOL (HEALTHYLAX) 3350 17 GM PACKET PO SCH (10:02)
[2023-02-24] MEDS: ACETAMINOPHEN 325 MG TABLET (FP) PO PRN (13:21)
[2023-02-24] MEDS: MONTELUKAST NA 10 MG TABLET PO SCH (22:05)
[2023-02-24] MEDS: ATORVASTATIN CA 20 MG TABLET (FP) PO SCH (22:05)
[2023-02-25] MEDS: LEVOTHYROXINE NA 50 MCG TABLET (FP) PO SCH (07:05)
[2023-02-25] MEDS: SUCRALFATE 1 GM/10 ML UNIT DOSE CUPS PO SCH ×4 (07:05→22:31)
[2023-02-25] MEDS: predniSONE 5 MG TABLET (UD) PO SCH (10:00)
[2023-02-25] MEDS: APIXABAN 5 MG TABLET PO SCH ×2 (10:00→22:31)
[2023-02-25] MEDS: LORATADINE 10 MG TABLET PO SCH (10:00)
[2023-02-25] MEDS: POLYETHYLENE GLYCOL (HEALTHYLAX) 3350 17 GM PACKET PO SCH ×2 (10:01→10:13)
[2023-02-25] MEDS: FLUTICASONE PROP 0.05% 16 GM NASAL SPRAY NS SCH (10:09)
[2023-02-25] MEDS: DULoxetine HCL 20 MG CAPSULE.DR PO SCH (10:09)
[2023-02-25] MEDS: ATORVASTATIN CA 20 MG TABLET (FP) PO SCH (22:31)
[2023-02-25] MEDS: MONTELUKAST NA 10 MG TABLET PO SCH (22:31)
[2023-02-26] MEDS: SUCRALFATE 1 GM/10 ML UNIT DOSE CUPS PO SCH ×4 (06:10→21:06)
[2023-02-26] MEDS: LEVOTHYROXINE NA 50 MCG TABLET (FP) PO SCH (06:10)
[2023-02-26] MEDS: POLYETHYLENE GLYCOL (HEALTHYLAX) 3350 17 GM PACKET PO SCH (09:35)
[2023-02-26] MEDS: APIXABAN 5 MG TABLET PO SCH ×2 (09:35→21:06)
[2023-02-26] MEDS: predniSONE 5 MG TABLET (UD) PO SCH (09:35)
[2023-02-26] MEDS: LORATADINE 10 MG TABLET PO SCH (09:35)
[2023-02-26] MEDS: DULoxetine HCL 20 MG CAPSULE.DR PO SCH (09:35)
[2023-02-26] MEDS: FLUTICASONE PROP 0.05% 16 GM NASAL SPRAY NS SCH (09:37)
[2023-02-26] MEDS: ATORVASTATIN CA 20 MG TABLET (FP) PO SCH (21:06)
[2023-02-26] MEDS: MONTELUKAST NA 10 MG TABLET PO SCH (21:06)
[2023-02-27] MEDS: LEVOTHYROXINE NA 50 MCG TABLET (FP) PO SCH (06:17)
[2023-02-27] MEDS: SUCRALFATE 1 GM/10 ML UNIT DOSE CUPS PO SCH ×4 (06:17→21:15)
[2023-02-27] MEDS: APIXABAN 5 MG TABLET PO SCH ×2 (09:33→21:15)
[2023-02-27] MEDS: predniSONE 5 MG TABLET (UD) PO SCH (09:33)
[2023-02-27] MEDS: LORATADINE 10 MG TABLET PO SCH (09:33)
[2023-02-27] MEDS: POLYETHYLENE GLYCOL (HEALTHYLAX) 3350 17 GM PACKET PO SCH (09:34)
[2023-02-27] MEDS: DULoxetine HCL 20 MG CAPSULE.DR PO SCH (09:34)
[2023-02-27] MEDS: FLUTICASONE PROP 0.05% 16 GM NASAL SPRAY NS SCH (09:36)
[2023-02-27] MEDS: ATORVASTATIN CA 20 MG TABLET (FP) PO SCH (21:15)
[2023-02-27] MEDS: MONTELUKAST NA 10 MG TABLET PO SCH (21:16)
[2023-02-28 04:54] VITALS: BP 108/66; PULSE 74; RESP 18; TEMP 98.4
[2023-02-28] MEDS: LEVOTHYROXINE NA 50 MCG TABLET (FP) PO SCH (06:37)
[2023-02-28] MEDS: SUCRALFATE 1 GM/10 ML UNIT DOSE CUPS PO SCH ×2 (06:37→12:05)
[2023-02-28] MEDS: DULoxetine HCL 20 MG CAPSULE.DR PO SCH (09:29)
[2023-02-28] MEDS: APIXABAN 5 MG TABLET PO SCH (09:29)
[2023-02-28] MEDS: POLYETHYLENE GLYCOL (HEALTHYLAX) 3350 17 GM PACKET PO SCH (09:29)
[2023-02-28] MEDS: LORATADINE 10 MG TABLET PO SCH (09:29)
[2023-02-28] MEDS: predniSONE 5 MG TABLET (UD) PO SCH (09:29)
[2023-02-28] MEDS: FLUTICASONE PROP 0.05% 16 GM NASAL SPRAY NS SCH (09:30)
== END 2023-02-28 14:15 | disposition home or self-care (01) | DRG 871 ==
LOC: JER 13:05 → JERBED 18:40 → JICU 20:51 → J4W 02-07 12:09 → J6S 02-11 18:58
PROVIDERS: ADMIT Internal Medicine; ATTEND Family Medicine
DX: A41.9 Sepsis, unspecified organism (principal); I26.99 Other pulmonary embolism without acute cor pulmonale; J96.91 Respiratory failure, unspecified with hypoxia; E87.20 Acidosis, unspecified; N17.9 Acute kidney failure, unspecified; N39.0 Urinary tract infection, site not specified; R57.9 Shock, unspecified; I13.0 Hypertensive heart and chronic kidney disease with heart failure and stage 1 through stage 4 chronic kidney disease, or unspecified chronic kidney disease; I82.432 Acute embolism and thrombosis of left popliteal vein; E11.22 Type 2 diabetes mellitus with diabetic chronic kidney disease; N18.9 Chronic kidney disease, unspecified; E78.5 Hyperlipidemia, unspecified; J45.909 Unspecified asthma, uncomplicated; Z79.4 Long term (current) use of insulin; D69.6 Thrombocytopenia, unspecified; I50.9 Heart failure, unspecified; D64.9 Anemia, unspecified; K59.00 Constipation, unspecified; R51.9 Headache, unspecified; J44.9 Chronic obstructive pulmonary disease, unspecified; R31.0 Gross hematuria; M25.572 Pain in left ankle and joints of left foot; M25.571 Pain in right ankle and joints of right foot; M25.472 Effusion, left ankle; M25.471 Effusion, right ankle; R76.8 Other specified abnormal immunological findings in serum; Z85.038 Personal history of other malignant neoplasm of large intestine
CPT/HCPCS: 0241U-QW; 36415; 36430; 70450-TC; 71045-TC-FY; 71275-TC; 73610-TC-LT-FY; 73610-TC-RT-FY; 73630-TC-LT; 73630-TC-RT-FY; 74174-TC; 80048; 80053; 80076; 81003; 82272; 82550; 82728; 82803; 82962; 83516; 83520; 83540; 83550; 83605; 83735; 84100; 84439; 84443; 84484; 84550; 85025; 85027; 85610; 85651; 85730; 86038; 86140; 86225; 86256; 86850; 86900; 86901; 86922; 87040; 87077; 87086; 87186; 87635; 93005; 93010; 93306-TC; 93970-TC; 94010; 94761; 97116-GP; 97161-GP; 99291; G0480; J1644; J1756; J2997; P9058; Q9967

== ENCOUNTER 2023-03-04 22:57 | Inpatient (IN) | payer BC ==
[2023-03-04 23:37] VITALS: BMI 33.4
[2023-03-04] MEDS ORDERED: ACETAMINOPHEN 1000 MG/100 ML BAG IVPB ONE (23:39)
[2023-03-04] MEDS ORDERED: SODIUM CHLORIDE 0.9% 500 ML INFUS.BAG IV ONE (23:39)
[2023-03-05] MEDS ORDERED: PIPERACILLIN/TAZOBACTAM 4.5 GM VIAL IVPB ONE (00:18)
[2023-03-05] MEDS ORDERED: VANCOMYCIN 1,000 MG in DEXTROSE 5%-WATER - 250 ML IVPB ONE (00:18)
[2023-03-05] MEDS ORDERED: CEFEPIME HCL 1 GM VIAL (RESTRICTED TO ID) IVPB ONE (00:19)
[2023-03-05 00:31] LABS: HEMATOCRIT 31.8 % (32.4-45.2); HEMOGLOBIN 10.1 GM/dL (10.7-15.3); MCH 28.2 pg (25.7-33.7); MCHC 31.7 g/dl (32.0-36.0); MEAN CELL VOLUME 89.1 fl (80-96); MEAN PLT VOLUME 7.5 fl (7.5-11.1); PLATELET COUNT 249 10^3/uL (134-434); RBC 3.57 M/mm3 (3.60-5.2); RDW 16.1 % (11.6-15.6)
[2023-03-05 00:34] LABS: WHITE BLOOD COUNT 33.3 K/mm3 (4.0-10.0)
[2023-03-05] MEDS ORDERED: ACETAMINOPHEN INJECTION 100 ML IVPB ONE (00:45)
[2023-03-05] MEDS ORDERED: SODIUM CHLORIDE 0.9% 500 ML INFUS.BAG IV ONE (00:46)
[2023-03-05 00:50] LABS: POTASSIUM 4.7 mmol/L (3.5-5.1)
[2023-03-05] MEDS ORDERED: CEFEPIME HCL 2 GM VIAL (RESTRICTED TO ID) IVPB ONE (00:50)
[2023-03-05 00:51] LABS: CALCIUM 9.1 mg/dL (8.5-10.1)
[2023-03-05 00:52] LABS: BLOOD UREA NITROGEN 41.1 mg/dL (7-18)
[2023-03-05 00:55] LABS: CREATININE 2.3 mg/dL (0.55-1.3)
[2023-03-05 00:57] LABS: BILIRUBIN,TOTAL 0.9 mg/dL (0.2-1); TOT PROT 7.5 g/dl (6.4-8.2)
[2023-03-05 01:13] LABS: VENOUS BASE EXCESS -0.9 mmol/L (-2-2); VENOUS O2 SATURATION 62.9 % (70-80); VENOUS PCO2 39.7 mmHg (38-52); VENOUS PH 7.396 (7.310-7.410)
[2023-03-05] MEDS ORDERED: CEFEPIME 1 GM/100 ML BAG IVPB ONE (01:14)
[2023-03-05] MEDS ORDERED: CEFEPIME 2 GM/100 ML BAG IVPB ONE (01:15)
[2023-03-05 01:39] LABS: ALBUMIN 2.8 g/dl (3.4-5.0); N-TERMINAL BNP 700.4 pg/ml (5-125)
[2023-03-05 04:06] LABS: EPI CELLS 16 /uL (0-25.1); HYALINE CASTS 2 /uL (0-3.1); PH,URINE 5.5 (5.0-8.0); URINE APPEARANCE TURBID; URINE BACTERIA >9,000 /uL (0-1359); URINE BILIRUBIN NEGATIVE (NEGATIVE); URINE COLOR YELLOW; URINE GLUCOSE (UA) NEGATIVE (NEGATIVE); URINE KETONE TRACE (NEGATIVE); URINE LEUK ESTERASE 3+ (NEGATIVE); URINE NITRITE NEGATIVE (NEGATIVE); URINE PROTEIN 3+ (NEGATIVE); URINE RBC 14 /uL (0-23.9); URINE WBC 2498 /uL (0-25.8)
[2023-03-05 04:08] LABS: INR 1.97 (0.83-1.09); PROTHROMBIN TIME (PATIENT) 22.7 SEC (9.7-13.0)
[2023-03-05 04:10] LABS: ACTIVATED PTT 34.8 SECONDS (25.2-36.5)
[2023-03-05 05:22] LABS: ANISOCYTOSIS 2+; MACROCYTOSIS 1+; ROULEAU 2+
[2023-03-05] MEDS ORDERED: LEVOTHYROXINE NA 50 MCG TABLET (FP) ONE (09:32)
[2023-03-05] MEDS: LEVOTHYROXINE NA 50 MCG TABLET (FP) PO SCH (09:59)
[2023-03-05] MEDS ORDERED: APIXABAN 5 MG TABLET ONE (10:04)
[2023-03-05] MEDS: APIXABAN 5 MG TABLET PO SCH ×2 (10:08→21:39)
[2023-03-05] MEDS: DULoxetine HCL 20 MG CAPSULE.DR PO SCH (10:08)
[2023-03-05] MEDS ORDERED: MEROPENEM 1 GM VIAL (RESTRICTED TO ID) IVPB ONE (11:32)
[2023-03-05] MEDS: MEROPENEM 1 GM in DEXTROSE 5%-WATER 100 ML IVPB SCH ×2 (11:38→21:57)
[2023-03-05] MEDS ORDERED: SODIUM CHLORIDE 1,000 ML IV SCH (13:30)
[2023-03-05] MEDS: SODIUM CHLORIDE 1,000 ML IV SCH (14:27)
[2023-03-05 14:52] LABS: HEMATOCRIT 29.6 % (32.4-45.2); HEMOGLOBIN 9.2 GM/dL (10.7-15.3); MCH 28.2 pg (25.7-33.7); MCHC 31.1 g/dl (32.0-36.0); MEAN CELL VOLUME 90.4 fl (80-96); MEAN PLT VOLUME 7.8 fl (7.5-11.1); PLATELET COUNT 202 10^3/uL (134-434); RBC 3.27 M/mm3 (3.60-5.2); RDW 15.3 % (11.6-15.6); WHITE BLOOD COUNT 22.8 K/mm3 (4.0-10.0)
[2023-03-05 15:08] LABS: POTASSIUM 3.9 mmol/L (3.5-5.1)
[2023-03-05 15:09] LABS: CALCIUM 8.6 mg/dL (8.5-10.1)
[2023-03-05 15:10] LABS: ALBUMIN 2.5 g/dl (3.4-5.0); BLOOD UREA NITROGEN 39.9 mg/dL (7-18)
[2023-03-05 15:13] LABS: CREATININE 1.9 mg/dL (0.55-1.3)
[2023-03-05 15:15] LABS: BILIRUBIN,TOTAL 0.4 mg/dL (0.2-1); TOT PROT 6.8 g/dl (6.4-8.2)
[2023-03-05 15:39] LABS: ANISOCYTOSIS 2+; MACROCYTOSIS 2+; OVALOCYTE 2+
[2023-03-05] MEDS: ATORVASTATIN CA 20 MG TABLET (FP) PO SCH (21:39)
[2023-03-05] MEDS: MONTELUKAST NA 10 MG TABLET PO SCH (21:39)
[2023-03-06] MEDS ORDERED: VANCOMYCIN/WATER FOR INJ (PEG) 1,000 MG/200 ML BAG IVPB SCH (03:00)
[2023-03-06] MEDS ORDERED: VANCOMYCIN 1,000 MG in DEXTROSE 5%-WATER - 250 ML IVPB SCH (03:00)
[2023-03-06] MEDS: LEVOTHYROXINE NA 50 MCG TABLET (FP) PO SCH (06:00)
[2023-03-06] MEDS: DULoxetine HCL 20 MG CAPSULE.DR PO SCH (09:34)
[2023-03-06] MEDS: APIXABAN 5 MG TABLET PO SCH ×2 (09:34→21:42)
[2023-03-06] MEDS: MEROPENEM 1 GM in DEXTROSE 5%-WATER 100 ML IVPB SCH ×2 (09:34→21:42)
[2023-03-06 09:49] LABS: BASO % 0.2 % (0-2.0); EOS % 1.1 % (0-4.5); HEMATOCRIT 26.6 % (32.4-45.2); HEMOGLOBIN 8.3 GM/dL (10.7-15.3); LYMPH % 15.4 % (8-40); MCH 28.4 pg (25.7-33.7); MCHC 31.4 g/dl (32.0-36.0); MEAN CELL VOLUME 90.5 fl (80-96); MEAN PLT VOLUME 8.3 fl (7.5-11.1); MONO % 7.1 % (3.8-10.2); NEUT % 76.2 % (42.8-82.8); PLATELET COUNT 181 10^3/uL (134-434); RBC 2.94 M/mm3 (3.60-5.2); RDW 15.8 % (11.6-15.6); WHITE BLOOD COUNT 13.2 K/mm3 (4.0-10.0)
[2023-03-06 10:09] LABS: POTASSIUM 3.8 mmol/L (3.5-5.1)
[2023-03-06 10:11] LABS: CALCIUM 7.6 mg/dL (8.5-10.1)
[2023-03-06 10:15] LABS: ALBUMIN 2.1 g/dl (3.4-5.0)
[2023-03-06 10:18] LABS: CREATININE 1.5 mg/dL (0.55-1.3); TOT PROT 5.8 g/dl (6.4-8.2)
[2023-03-06 10:22] LABS: BILIRUBIN,TOTAL 0.4 mg/dL (0.2-1)
[2023-03-06 10:38] LABS: BLOOD UREA NITROGEN 31.4 mg/dL (7-18)
[2023-03-06] MEDS: SODIUM CHLORIDE 1,000 ML IV SCH (17:19)
[2023-03-06] MEDS: ATORVASTATIN CA 20 MG TABLET (FP) PO SCH (21:42)
[2023-03-06] MEDS: MONTELUKAST NA 10 MG TABLET PO SCH (21:42)
[2023-03-07] MEDS ORDERED: VANCOMYCIN/WATER 1250 MG 1,250 MG/250 ML BAG IVPB SCH (03:00)
[2023-03-07] MEDS: LEVOTHYROXINE NA 50 MCG TABLET (FP) PO SCH (06:13)
[2023-03-07] MEDS: MEROPENEM 1 GM in DEXTROSE 5%-WATER 100 ML IVPB SCH (10:06)
[2023-03-07] MEDS: APIXABAN 5 MG TABLET PO SCH ×2 (10:06→21:40)
[2023-03-07] MEDS: DULoxetine HCL 20 MG CAPSULE.DR PO SCH (10:06)
[2023-03-07] MEDS: CEFTRIAXONE 2 GM in DEXTROSE 5%-WATER 100 ML IVPB SCH (17:01)
[2023-03-07] MEDS: SODIUM CHLORIDE 1,000 ML IV SCH (17:01)
[2023-03-07] MEDS: MONTELUKAST NA 10 MG TABLET PO SCH (21:40)
[2023-03-07] MEDS: ATORVASTATIN CA 20 MG TABLET (FP) PO SCH (21:40)
[2023-03-08] MEDS: LEVOTHYROXINE NA 50 MCG TABLET (FP) PO SCH (06:33)
[2023-03-08] MEDS ORDERED: diphenhydrAMINE HCL 25 MG CAPSULE (FP) PO PRN (08:50)
[2023-03-08] MEDS: DULoxetine HCL 20 MG CAPSULE.DR PO SCH (09:14)
[2023-03-08] MEDS: CEFTRIAXONE 2 GM in DEXTROSE 5%-WATER 100 ML IVPB SCH (09:14)
[2023-03-08] MEDS: APIXABAN 5 MG TABLET PO SCH ×2 (09:14→21:03)
[2023-03-08 11:08] LABS: HEMOGLOBIN 8.4 GM/dL (10.7-15.3); MCH 29.2 pg (25.7-33.7); MCHC 33.7 g/dl (32.0-36.0); MEAN CELL VOLUME 86.7 fl (80-96); MEAN PLT VOLUME 7.1 fl (7.5-11.1); PLATELET COUNT 188 10^3/uL (134-434); RBC 2.88 M/mm3 (3.60-5.2); WHITE BLOOD COUNT 7.7 K/mm3 (4.0-10.0)
[2023-03-08 11:35] LABS: POTASSIUM 3.9 mmol/L (3.5-5.1)
[2023-03-08 11:40] LABS: CREATININE 1.1 mg/dL (0.55-1.3)
[2023-03-08 11:41] LABS: BLOOD UREA NITROGEN 15.6 mg/dL (7-18); CALCIUM 8.2 mg/dL (8.5-10.1)
[2023-03-08] MEDS: SODIUM CHLORIDE 1,000 ML IV SCH ×2 (12:27→18:53)
[2023-03-08] MEDS: MONTELUKAST NA 10 MG TABLET PO SCH (21:03)
[2023-03-08] MEDS: ATORVASTATIN CA 20 MG TABLET (FP) PO SCH (21:03)
[2023-03-09] MEDS: LEVOTHYROXINE NA 50 MCG TABLET (FP) PO SCH (06:04)
[2023-03-09 10:16] LABS: BASO % 0.5 % (0-2.0); EOS % 2.7 % (0-4.5); HEMATOCRIT 26.4 % (32.4-45.2); HEMOGLOBIN 8.8 GM/dL (10.7-15.3); MCH 28.9 pg (25.7-33.7); MCHC 33.2 g/dl (32.0-36.0); MEAN CELL VOLUME 86.9 fl (80-96); MEAN PLT VOLUME 7.2 fl (7.5-11.1); NEUT % 67.8 % (42.8-82.8); PLATELET COUNT 196 10^3/uL (134-434); RBC 3.04 M/mm3 (3.60-5.2); RDW 16.3 % (11.6-15.6); WHITE BLOOD COUNT 9.3 K/mm3 (4.0-10.0)
[2023-03-09] MEDS: APIXABAN 5 MG TABLET PO SCH ×2 (10:49→21:44)
[2023-03-09] MEDS: CEFTRIAXONE 2 GM in DEXTROSE 5%-WATER 100 ML IVPB SCH (10:49)
[2023-03-09] MEDS: DULoxetine HCL 20 MG CAPSULE.DR PO SCH (10:49)
[2023-03-09 10:52] LABS: POTASSIUM 3.8 mmol/L (3.5-5.1)
[2023-03-09 10:54] LABS: BLOOD UREA NITROGEN 13.3 mg/dL (7-18); CALCIUM 8.5 mg/dL (8.5-10.1)
[2023-03-09 10:55] LABS: ALBUMIN 2.1 g/dl (3.4-5.0)
[2023-03-09 10:59] LABS: BILIRUBIN,TOTAL 0.4 mg/dL (0.2-1); TOT PROT 6.1 g/dl (6.4-8.2)
[2023-03-09] MEDS: SODIUM CHLORIDE 1,000 ML IV SCH (16:56)
[2023-03-09] MEDS ORDERED: ACETAMINOPHEN 1000 MG/100 ML BAG IVPB ONE (20:59)
[2023-03-09 21:33] LABS: BASO % 0.5 % (0-2.0); EOS % 1.9 % (0-4.5); HEMOGLOBIN 8.7 GM/dL (10.7-15.3); LYMPH % 18.5 % (8-40); MCH 28.1 pg (25.7-33.7); MCHC 32.1 g/dl (32.0-36.0); MEAN CELL VOLUME 87.5 fl (80-96); MEAN PLT VOLUME 7.1 fl (7.5-11.1); MONO % 8.4 % (3.8-10.2); NEUT % 70.7 % (42.8-82.8); PLATELET COUNT 218 10^3/uL (134-434); RBC 3.09 M/mm3 (3.60-5.2); RDW 16.3 % (11.6-15.6); WHITE BLOOD COUNT 12.3 K/mm3 (4.0-10.0)
[2023-03-09] MEDS: MONTELUKAST NA 10 MG TABLET PO SCH (21:44)
[2023-03-09] MEDS: ATORVASTATIN CA 20 MG TABLET (FP) PO SCH (21:44)
[2023-03-09] MEDS: POLYETHYLENE GLYCOL (HEALTHYLAX) 3350 17 GM PACKET PO SCH (21:54)
[2023-03-09 22:13] LABS: POTASSIUM 3.8 mmol/L (3.5-5.1)
[2023-03-09 22:15] LABS: BLOOD UREA NITROGEN 13.8 mg/dL (7-18); MAGNESIUM 1.1 mg/dL (1.8-2.4)
[2023-03-09 22:18] LABS: CREATININE 1.2 mg/dL (0.55-1.3); PHOSPHOROUS 2.5 mg/dL (2.5-4.9)
[2023-03-10] MEDS ORDERED: VANCOMYCIN/WATER FOR INJ (PEG) 1,000 MG/200 ML BAG IVPB ONE (04:30)
[2023-03-10 05:03] LABS: EPI CELLS 4 /uL (0-25.1); HYALINE CASTS 1 /uL (0-3.1); URINE APPEARANCE CLEAR; URINE BACTERIA 75 /uL (0-1359); URINE BILIRUBIN NEGATIVE (NEGATIVE); URINE COLOR YELLOW; URINE GLUCOSE (UA) NEGATIVE (NEGATIVE); URINE KETONE NEGATIVE (NEGATIVE); URINE LEUK ESTERASE 3+ (NEGATIVE); URINE NITRITE NEGATIVE (NEGATIVE); URINE PROTEIN TRACE (NEGATIVE); URINE RBC 31 /uL (0-23.9); URINE UROBILINOGEN 0.2 mg/dL (0.2-1.0); URINE WBC 895 /uL (0-25.8)
[2023-03-10] MEDS: LEVOTHYROXINE NA 50 MCG TABLET (FP) PO SCH (06:05)
[2023-03-10] MEDS ORDERED: ACETAMINOPHEN 1000 MG/100 ML BAG IVPB PRN (07:24)
[2023-03-10] MEDS ORDERED: MAGNESIUM OXIDE 400 MG TABLET (FP) PO ONE (07:27)
[2023-03-10] MEDS ORDERED: MAGNESIUM SULFATE IN WATER 2 GM/50 ML IVPB IVPB ONE (07:27)
[2023-03-10] MEDS: APIXABAN 5 MG TABLET PO SCH ×2 (10:21→21:27)
[2023-03-10] MEDS: DULoxetine HCL 20 MG CAPSULE.DR PO SCH (10:21)
[2023-03-10] MEDS: CEFTRIAXONE 2 GM in DEXTROSE 5%-WATER 100 ML IVPB SCH (10:21)
[2023-03-10] MEDS: POLYETHYLENE GLYCOL (HEALTHYLAX) 3350 17 GM PACKET PO SCH ×2 (10:22→21:28)
[2023-03-10] MEDS ORDERED: MAGNESIUM SULF 50% (8.12 MEQ/2 ML-1 GM VIAL) IVPB ONE (12:02)
[2023-03-10 12:38] LABS: BASO % 0.2 % (0-2.0); EOS % 1.9 % (0-4.5); HEMATOCRIT 27.4 % (32.4-45.2); HEMOGLOBIN 8.8 GM/dL (10.7-15.3); LYMPH % 16.8 % (8-40); MCH 28.5 pg (25.7-33.7); MEAN CELL VOLUME 89.3 fl (80-96); MEAN PLT VOLUME 7.5 fl (7.5-11.1); MONO % 8.8 % (3.8-10.2); NEUT % 72.3 % (42.8-82.8); PLATELET COUNT 232 10^3/uL (134-434); RBC 3.07 M/mm3 (3.60-5.2); WHITE BLOOD COUNT 10.6 K/mm3 (4.0-10.0)
[2023-03-10 13:53] LABS: POTASSIUM 3.4 mmol/L (3.5-5.1)
[2023-03-10 13:56] LABS: ALBUMIN 2.2 g/dl (3.4-5.0); BLOOD UREA NITROGEN 14.7 mg/dL (7-18); CALCIUM 8.4 mg/dL (8.5-10.1)
[2023-03-10 13:58] LABS: CREATININE 1.1 mg/dL (0.55-1.3); MAGNESIUM 2.2 mg/dL (1.8-2.4)
[2023-03-10 14:00] LABS: BILIRUBIN,TOTAL 0.2 mg/dL (0.2-1); TOT PROT 6.4 g/dl (6.4-8.2)
[2023-03-10] MEDS: SODIUM CHLORIDE 1,000 ML IV SCH (15:18)
[2023-03-10] MEDS: ATORVASTATIN CA 20 MG TABLET (FP) PO SCH (21:27)
[2023-03-10] MEDS: MONTELUKAST NA 10 MG TABLET PO SCH (21:27)
[2023-03-11] MEDS: LEVOTHYROXINE NA 50 MCG TABLET (FP) PO SCH (06:02)
[2023-03-11 10:12] LABS: BASO % 0.2 % (0-2.0); EOS % 2.5 % (0-4.5); HEMATOCRIT 28.1 % (32.4-45.2); LYMPH % 22.2 % (8-40); MCH 28.6 pg (25.7-33.7); MCHC 32.2 g/dl (32.0-36.0); MEAN PLT VOLUME 7.6 fl (7.5-11.1); NEUT % 66.1 % (42.8-82.8); PLATELET COUNT 299 10^3/uL (134-434); RBC 3.16 M/mm3 (3.60-5.2); RDW 16.1 % (11.6-15.6); WHITE BLOOD COUNT 9.8 K/mm3 (4.0-10.0)
[2023-03-11 10:34] LABS: POTASSIUM 3.6 mmol/L (3.5-5.1)
[2023-03-11 10:40] LABS: CALCIUM 8.6 mg/dL (8.5-10.1)
[2023-03-11 10:41] LABS: ALBUMIN 2.3 g/dl (3.4-5.0); BLOOD UREA NITROGEN 16.2 mg/dL (7-18); MAGNESIUM 2.1 mg/dL (1.8-2.4)
[2023-03-11 10:43] LABS: URIC ACID 5.1 mg/dL (2.6-7.2)
[2023-03-11 10:45] LABS: BILIRUBIN,TOTAL 0.4 mg/dL (0.2-1); TOT PROT 6.8 g/dl (6.4-8.2)
[2023-03-11] MEDS: APIXABAN 5 MG TABLET PO SCH ×2 (11:02→21:27)
[2023-03-11] MEDS: DULoxetine HCL 20 MG CAPSULE.DR PO SCH (11:02)
[2023-03-11] MEDS: POLYETHYLENE GLYCOL (HEALTHYLAX) 3350 17 GM PACKET PO SCH ×2 (11:03→21:30)
[2023-03-11] MEDS: CEFTRIAXONE 2 GM in DEXTROSE 5%-WATER 100 ML IVPB SCH (11:04)
[2023-03-11] MEDS: SODIUM CHLORIDE 1,000 ML IV SCH (20:43)
[2023-03-11] MEDS: MONTELUKAST NA 10 MG TABLET PO SCH (21:27)
[2023-03-11] MEDS: ATORVASTATIN CA 20 MG TABLET (FP) PO SCH (21:27)
[2023-03-12] MEDS: LEVOTHYROXINE NA 50 MCG TABLET (FP) PO SCH (06:04)
[2023-03-12] MEDS: APIXABAN 5 MG TABLET PO SCH ×2 (09:14→21:08)
[2023-03-12] MEDS: POLYETHYLENE GLYCOL (HEALTHYLAX) 3350 17 GM PACKET PO SCH ×3 (09:14→21:17)
[2023-03-12] MEDS: CEFTRIAXONE 2 GM in DEXTROSE 5%-WATER 100 ML IVPB SCH (09:14)
[2023-03-12] MEDS: DULoxetine HCL 20 MG CAPSULE.DR PO SCH (09:15)
[2023-03-12] MEDS ORDERED: traMADol HCL 50 MG TABLET PO PRN (10:35)
[2023-03-12] MEDS: LIDOCAINE 5% TOPICAL PATCH TP SCH (17:46)
[2023-03-12] MEDS: ACETAMINOPHEN 325 MG TABLET (FP) PO PRN (21:08)
[2023-03-12] MEDS: MONTELUKAST NA 10 MG TABLET PO SCH (21:08)
[2023-03-12] MEDS: LIDOCAINE PATCH REMOVAL MC SCH (21:08)
[2023-03-12] MEDS: ATORVASTATIN CA 20 MG TABLET (FP) PO SCH (21:08)
[2023-03-12] MEDS: traZODone HCL 50 MG TABLET (FP) PO SCH (21:08)
[2023-03-13] MEDS: LEVOTHYROXINE NA 50 MCG TABLET (FP) PO SCH (06:12)
[2023-03-13] MEDS: APIXABAN 5 MG TABLET PO SCH ×2 (09:40→21:48)
[2023-03-13] MEDS: CEFTRIAXONE 2 GM in DEXTROSE 5%-WATER 100 ML IVPB SCH (09:40)
[2023-03-13] MEDS: DULoxetine HCL 20 MG CAPSULE.DR PO SCH (09:40)
[2023-03-13] MEDS: LIDOCAINE 5% TOPICAL PATCH TP SCH (09:40)
[2023-03-13] MEDS: POLYETHYLENE GLYCOL (HEALTHYLAX) 3350 17 GM PACKET PO SCH ×2 (09:40→21:47)
[2023-03-13] MEDS: ATORVASTATIN CA 20 MG TABLET (FP) PO SCH (21:48)
[2023-03-13] MEDS: MONTELUKAST NA 10 MG TABLET PO SCH (21:48)
[2023-03-13] MEDS: traZODone HCL 50 MG TABLET (FP) PO SCH (21:48)
[2023-03-13] MEDS: LIDOCAINE PATCH REMOVAL MC SCH (22:00)
[2023-03-14] MEDS: LEVOTHYROXINE NA 50 MCG TABLET (FP) PO SCH (06:53)
[2023-03-14 08:54] LABS: BASO % 0.1 % (0-2.0); HEMATOCRIT 25.7 % (32.4-45.2); HEMOGLOBIN 8.2 GM/dL (10.7-15.3); LYMPH % 39.2 % (8-40); MCHC 32.1 g/dl (32.0-36.0); MEAN CELL VOLUME 87.2 fl (80-96); MEAN PLT VOLUME 6.8 fl (7.5-11.1); NEUT % 49.7 % (42.8-82.8); PLATELET COUNT 298 10^3/uL (134-434); RBC 2.94 M/mm3 (3.60-5.2); RDW 15.9 % (11.6-15.6); WHITE BLOOD COUNT 6.6 K/mm3 (4.0-10.0)
[2023-03-14 09:11] LABS: POTASSIUM 4.6 mmol/L (3.5-5.1)
[2023-03-14 09:12] LABS: ALBUMIN 2.2 g/dl (3.4-5.0); CALCIUM 8.6 mg/dL (8.5-10.1)
[2023-03-14 09:15] LABS: CREATININE 1.1 mg/dL (0.55-1.3)
[2023-03-14 09:17] LABS: BILIRUBIN,TOTAL 0.2 mg/dL (0.2-1); TOT PROT 6.5 g/dl (6.4-8.2)
[2023-03-14] MEDS: CEFTRIAXONE 2 GM in DEXTROSE 5%-WATER 100 ML IVPB SCH (09:40)
[2023-03-14] MEDS: APIXABAN 5 MG TABLET PO SCH ×2 (09:40→21:25)
[2023-03-14] MEDS: LIDOCAINE 5% TOPICAL PATCH TP SCH (09:40)
[2023-03-14] MEDS: POLYETHYLENE GLYCOL (HEALTHYLAX) 3350 17 GM PACKET PO SCH ×2 (09:41→21:26)
[2023-03-14] MEDS: DULoxetine HCL 20 MG CAPSULE.DR PO SCH (09:43)
[2023-03-14] MEDS: traZODone HCL 50 MG TABLET (FP) PO SCH (21:25)
[2023-03-14] MEDS: ATORVASTATIN CA 20 MG TABLET (FP) PO SCH (21:25)
[2023-03-14] MEDS: MONTELUKAST NA 10 MG TABLET PO SCH (21:25)
[2023-03-14] MEDS: LIDOCAINE PATCH REMOVAL MC SCH (21:31)
[2023-03-15] MEDS: LEVOTHYROXINE NA 50 MCG TABLET (FP) PO SCH (07:28)
[2023-03-15 09:34] LABS: BASO % 0.3 % (0-2.0); EOS % 2.3 % (0-4.5); HEMATOCRIT 26.8 % (32.4-45.2); HEMOGLOBIN 8.6 GM/dL (10.7-15.3); LYMPH % 38.3 % (8-40); MCH 28.4 pg (25.7-33.7); MCHC 32.2 g/dl (32.0-36.0); MEAN CELL VOLUME 88.2 fl (80-96); MEAN PLT VOLUME 7.1 fl (7.5-11.1); MONO % 7.7 % (3.8-10.2); NEUT % 51.4 % (42.8-82.8); PLATELET COUNT 308 10^3/uL (134-434); RBC 3.04 M/mm3 (3.60-5.2); RDW 16.2 % (11.6-15.6); WHITE BLOOD COUNT 7.8 K/mm3 (4.0-10.0)
[2023-03-15] MEDS: CEFTRIAXONE 2 GM in DEXTROSE 5%-WATER 100 ML IVPB SCH (10:33)
[2023-03-15] MEDS: DULoxetine HCL 20 MG CAPSULE.DR PO SCH (10:34)
[2023-03-15] MEDS: APIXABAN 5 MG TABLET PO SCH ×2 (10:34→23:15)
[2023-03-15] MEDS: LIDOCAINE 5% TOPICAL PATCH TP SCH (10:34)
[2023-03-15] MEDS: POLYETHYLENE GLYCOL (HEALTHYLAX) 3350 17 GM PACKET PO SCH ×2 (10:35→23:16)
[2023-03-15] MEDS: traZODone HCL 50 MG TABLET (FP) PO SCH (23:15)
[2023-03-15] MEDS: MONTELUKAST NA 10 MG TABLET PO SCH (23:15)
[2023-03-15] MEDS: ATORVASTATIN CA 20 MG TABLET (FP) PO SCH (23:15)
[2023-03-15] MEDS: LIDOCAINE PATCH REMOVAL MC SCH (23:17)
[2023-03-16] MEDS: LEVOTHYROXINE NA 50 MCG TABLET (FP) PO SCH (06:51)
[2023-03-16] MEDS: LIDOCAINE 5% TOPICAL PATCH TP SCH (10:32)
[2023-03-16] MEDS: APIXABAN 5 MG TABLET PO SCH ×2 (10:32→22:13)
[2023-03-16] MEDS: POLYETHYLENE GLYCOL (HEALTHYLAX) 3350 17 GM PACKET PO SCH ×3 (10:32→22:18)
[2023-03-16] MEDS: DULoxetine HCL 20 MG CAPSULE.DR PO SCH (10:32)
[2023-03-16] MEDS: traZODone HCL 50 MG TABLET (FP) PO SCH (22:12)
[2023-03-16] MEDS: ATORVASTATIN CA 20 MG TABLET (FP) PO SCH (22:14)
[2023-03-16] MEDS: MONTELUKAST NA 10 MG TABLET PO SCH (22:14)
[2023-03-16] MEDS: LIDOCAINE PATCH REMOVAL MC SCH (22:57)
[2023-03-17] MEDS: LEVOTHYROXINE NA 50 MCG TABLET (FP) PO SCH (06:06)
[2023-03-17] MEDS: POLYETHYLENE GLYCOL (HEALTHYLAX) 3350 17 GM PACKET PO SCH ×2 (09:15→22:10)
[2023-03-17] MEDS: DULoxetine HCL 20 MG CAPSULE.DR PO SCH (09:15)
[2023-03-17] MEDS: APIXABAN 5 MG TABLET PO SCH ×2 (09:15→22:09)
[2023-03-17] MEDS: LIDOCAINE 5% TOPICAL PATCH TP SCH (09:15)
[2023-03-17] MEDS: MONTELUKAST NA 10 MG TABLET PO SCH (22:09)
[2023-03-17] MEDS: traZODone HCL 50 MG TABLET (FP) PO SCH (22:09)
[2023-03-17] MEDS: ATORVASTATIN CA 20 MG TABLET (FP) PO SCH (22:09)
[2023-03-17] MEDS: ACETAMINOPHEN 325 MG TABLET (FP) PO PRN (22:13)
[2023-03-17] MEDS: LIDOCAINE PATCH REMOVAL MC SCH (22:38)
[2023-03-18] MEDS: LEVOTHYROXINE NA 50 MCG TABLET (FP) PO SCH (06:45)
[2023-03-18] MEDS: ACETAMINOPHEN 325 MG TABLET (FP) PO PRN ×2 (06:45→15:25)
[2023-03-18] MEDS: DULoxetine HCL 20 MG CAPSULE.DR PO SCH (09:03)
[2023-03-18] MEDS: APIXABAN 5 MG TABLET PO SCH ×2 (09:03→21:43)
[2023-03-18] MEDS: POLYETHYLENE GLYCOL (HEALTHYLAX) 3350 17 GM PACKET PO SCH ×3 (09:04→21:45)
[2023-03-18] MEDS: LIDOCAINE 5% TOPICAL PATCH TP SCH (09:27)
[2023-03-18] MEDS: LIDOCAINE PATCH REMOVAL MC SCH (21:43)
[2023-03-18] MEDS: traZODone HCL 50 MG TABLET (FP) PO SCH (21:43)
[2023-03-18] MEDS: MONTELUKAST NA 10 MG TABLET PO SCH (21:43)
[2023-03-18] MEDS: ATORVASTATIN CA 20 MG TABLET (FP) PO SCH (21:43)
[2023-03-19] MEDS: LEVOTHYROXINE NA 50 MCG TABLET (FP) PO SCH (06:35)
[2023-03-19] MEDS: APIXABAN 5 MG TABLET PO SCH ×2 (10:33→21:40)
[2023-03-19] MEDS: POLYETHYLENE GLYCOL (HEALTHYLAX) 3350 17 GM PACKET PO SCH ×3 (10:33→21:41)
[2023-03-19] MEDS: LIDOCAINE 5% TOPICAL PATCH TP SCH (10:33)
[2023-03-19] MEDS: DULoxetine HCL 20 MG CAPSULE.DR PO SCH (10:33)
[2023-03-19] MEDS: MONTELUKAST NA 10 MG TABLET PO SCH (21:40)
[2023-03-19] MEDS: traZODone HCL 50 MG TABLET (FP) PO SCH (21:41)
[2023-03-19] MEDS: LIDOCAINE PATCH REMOVAL MC SCH (21:41)
[2023-03-19] MEDS: ATORVASTATIN CA 20 MG TABLET (FP) PO SCH (21:41)
[2023-03-20] MEDS: LEVOTHYROXINE NA 50 MCG TABLET (FP) PO SCH (06:12)
[2023-03-20 08:39] VITALS: BP 134/80; PULSE 91; RESP 16; TEMP 98.1
[2023-03-20] MEDS: LIDOCAINE 5% TOPICAL PATCH TP SCH (09:05)
[2023-03-20] MEDS: DULoxetine HCL 20 MG CAPSULE.DR PO SCH (09:05)
[2023-03-20] MEDS: APIXABAN 5 MG TABLET PO SCH (09:05)
[2023-03-20] MEDS: POLYETHYLENE GLYCOL (HEALTHYLAX) 3350 17 GM PACKET PO SCH (09:05)
== END 2023-03-20 14:19 | DRG 872 ==
LOC: JER 22:57 → JERBED 03-05 03:27 → J6S 03-05 12:17
PROVIDERS: ADMIT Internal Medicine; ATTEND Family Medicine
DX: A41.9 Sepsis, unspecified organism (principal); N39.0 Urinary tract infection, site not specified; I13.0 Hypertensive heart and chronic kidney disease with heart failure and stage 1 through stage 4 chronic kidney disease, or unspecified chronic kidney disease; N17.9 Acute kidney failure, unspecified; N12 Tubulo-interstitial nephritis, not specified as acute or chronic; N10 Acute pyelonephritis; K56.7 Ileus, unspecified; J45.909 Unspecified asthma, uncomplicated; E11.22 Type 2 diabetes mellitus with diabetic chronic kidney disease; E78.5 Hyperlipidemia, unspecified; D64.9 Anemia, unspecified; I50.9 Heart failure, unspecified; J44.9 Chronic obstructive pulmonary disease, unspecified; N18.9 Chronic kidney disease, unspecified; I25.10 Atherosclerotic heart disease of native coronary artery without angina pectoris; B96.1 Klebsiella pneumoniae [K. pneumoniae] as the cause of diseases classified elsewhere; M75.52 Bursitis of left shoulder; R65.20 Severe sepsis without septic shock; E03.9 Hypothyroidism, unspecified; K76.0 Fatty (change of) liver, not elsewhere classified; E83.32 Hereditary vitamin D-dependent rickets (type 1) (type 2); M25.461 Effusion, right knee; K21.9 Gastro-esophageal reflux disease without esophagitis; Z88.0 Allergy status to penicillin
CPT/HCPCS: 0241U-QW; 36415; 71045-TC-FY; 72125-TC; 73560-TC-RT-FY; 74176-TC; 80048; 80053; 81003; 82803; 82962; 83036; 83605; 83690; 83735; 83880; 84100; 84484; 84550; 85025; 85027; 85610; 85730; 87040; 87086; 87186; 87635; 93005; 93010; 97116-GP; 97161-GP; 99285-25